=== PATIENT | male | born 1980 | race Caucasian/White ===

== ENCOUNTER 2016-08-26 12:32 | Emergency (ER) | payer MEDICAID ==
[~2016-08-26] VITALS: Ht 175.3 cm; Wt 79.4 kg
[2016-08-26 13:16] LABS: Hematocrit 41.3 % (41.0-53.0); Hemoglobin 13.9 g/dL (13.5-17.5); Mean Corpuscular Hemoglobin 30.3 pg (28.0-32.0); Mean Corpuscular Hgb Conc. 33.6 g/dL (32.0-36.0); Mean Corpuscular Volume 90.1 fL (80.0-100.0); Platelet Count (auto) 261 10^3/uL (140-450); Red Cell Distribution Width 13.1 % (11.6-16.0); SUSPECT VIEW TRANSMISSION; White Blood Cell 23.5 10^3/uL (4.4-10.8)
[2016-08-26 13:31] LABS: Metamyelocytes % 0; Myelocytes % 0; Promyelocytes % 0; Reactive Lymphocytes 0
[2016-08-26 13:37] LABS: Albumin 3.3 g/dL (3.4-5.0); BUN/Creatinine Ratio 13.1; Bilirubin, Total 1.5 mg/dL (0.2-1.0); Potassium 3.7 mmol/L (3.5-5.1)
[2016-08-26 14:02] LABS: Anisocytosis Slight; Ovalocytes FEW; Platelet Estimate Markedly Decreased
[2016-08-26] MEDS ORDERED: SODIUM CHLORIDE 0.9% 500 ML IV ONE (16:42)
[2016-08-26] MEDS ORDERED: CLINDAMYCIN 900MG IV 50 ML IV ONE (17:30)
[2016-08-26 17:45] LABS: Lactic Acid w/Reflex 2.9 mmol/L (0.4-2.0)
[2016-08-26 17:46] LABS: REFLEX LACTIC ACID YES OR NO YES
[2016-08-26] MEDS ORDERED: ONDANSETRON HCL 4 MG/2 ML VIAL IV ONE (21:00)
[2016-08-26] MEDS ORDERED: HYDROmorphone HCL 2 MG/ML VL IV ONE (21:00)
[2016-08-26] MEDS ORDERED: cefTRIAXone 1GM/50ML D5W 50 ML IV ONE (22:30)
[2016-08-26] MEDS ORDERED: VANCOMYCIN 1GM/250ML D5W 250 ML IV ONE (22:30)
[2016-08-27] MEDS ORDERED: HYDROcodone-ACET 10/325MG TAB PO ONE (01:30)
[2016-08-27 08:15] VITALS: BP 108/56
[2016-08-27] MEDS ORDERED: ACETAMINOPHEN 325 MG TAB PO ONE (08:30)
== END 2016-08-27 08:30 | disposition short-term general hospital (02) ==
LOC: ER 12:34
DX: L03.113 Cellulitis of right upper limb (principal); F17.210 Nicotine dependence, cigarettes, uncomplicated; F12.10 Cannabis abuse, uncomplicated; F15.10 Other stimulant abuse, uncomplicated; F11.10 Opioid abuse, uncomplicated
CPT/HCPCS: 36415; 73130; 73200; 80053; 83605; 85007; 85027; 87040; 94761; 96361; 96365; 96366; 96367; 96368; 96375; 99285; J0696; J1170; J2405; J3370; J3490; J7040

== ENCOUNTER 2017-03-03 19:33 | Emergency (ER) | payer MEDICAID ==
[~2017-03-03] VITALS: Ht 177.8 cm; Wt 86.2 kg
[2017-03-03] MEDS ORDERED: cefTRIAXone SOD 1,000 MG VL IM ONE (23:15)
[2017-03-03 23:16] VITALS: BP 147/79
== END 2017-03-03 23:21 | disposition home or self-care (01) ==
LOC: ER 19:44
DX: R21 Rash and other nonspecific skin eruption (principal); F17.210 Nicotine dependence, cigarettes, uncomplicated
CPT/HCPCS: 96372; 99283; J0696

== ENCOUNTER 2017-03-30 20:40 | Emergency (ER) | payer MEDICAID ==
[~2017-03-30] VITALS: Ht 177.8 cm; Wt 86.2 kg
[2017-03-31] MEDS ORDERED: LIDOCAINE 1% HCL (LOCAL ANESTH.) INJ 20ML MDV ONE
[2017-03-31] MEDS ORDERED: cefTRIAXone SOD 1,000 MG VL IM ONE
[2017-03-31] MEDS ORDERED: cefTRIAXone SOD 1,000 MG VL ONE
[2017-03-31 00:23] VITALS: BP 141/96
== END 2017-03-31 00:33 | disposition home or self-care (01) ==
LOC: ER 20:40
DX: L25.9 Unspecified contact dermatitis, unspecified cause (principal); I10 Essential (primary) hypertension; F17.210 Nicotine dependence, cigarettes, uncomplicated; B86 Scabies; Z20.7 Contact with and (suspected) exposure to pediculosis, acariasis and other infestations; Z76.0 Encounter for issue of repeat prescription
CPT/HCPCS: 96372; 99283; J0696; J2001

== ENCOUNTER 2017-05-17 14:39 | Emergency (ER) | payer MEDICAID ==
[~2017-05-17] VITALS: Ht 175.3 cm; Wt 90.7 kg
[2017-05-17] MEDS ORDERED: IPRATROPIUM BROM 0.5 MG/2.5ML INH SOL NEB ONE (18:15)
[2017-05-17] MEDS ORDERED: ALBUTEROL SULF 2.5 MG/0.5ML(0.5%) NEB SOLN NEB ONE (18:15)
[2017-05-17 18:30] VITALS: BP 111/79
== END 2017-05-17 18:47 | disposition home or self-care (01) ==
LOC: ER 14:47
DX: J45.909 Unspecified asthma, uncomplicated (principal); F17.210 Nicotine dependence, cigarettes, uncomplicated; Z76.0 Encounter for issue of repeat prescription
CPT/HCPCS: 93005; 94640

== ENCOUNTER 2017-07-21 20:20 | Inpatient (IN) | payer MEDICAID ==
[~2017-07-21] VITALS: Ht 177.8 cm; Wt 95.5 kg
[2017-07-21 22:04] LABS: Albumin 3.4 g/dL (3.4-5.0); BUN/Creatinine Ratio 11.4; Calcium 8.1 mg/dL (8.5-10.1); Potassium 3.5 mmol/L (3.5-5.1)
[2017-07-21 22:05] LABS: Mean Corpuscular Hemoglobin 29.7 pg (28.0-32.0); Mean Corpuscular Hgb Conc. 34.1 g/dL (32.0-36.0); Mean Corpuscular Volume 87.1 fL (80.0-100.0); Platelet Count (auto) 194 10^3/uL (140-450); Red Blood Cells 4.71 10^6/uL (4.5-5.90); Red Cell Distribution Width 13.2 % (11.8-14.3); White Blood Cell 21.7 10^3/uL (4.4-10.8)
[2017-07-21 22:06] LABS: Bilirubin, Total 2.4 mg/dL (0.2-1.0); Total Protein 7.8 g/dL (6.4-8.2)
[2017-07-21 22:12] LABS: Band Neutrophils % (manual) 0; Basophils % (manual) 0 (0.0-2.0); Eosinophils % (manual) 0 (0-7); Metamyelocytes % 0
[2017-07-21 22:13] LABS: Blast Cells 0; Myelocytes % 0; Promyelocytes % 0; Reactive Lymphocytes 0
[2017-07-21 22:14] LABS: INR 1.15 (0.9-1.15); Partial Thromboplastin Time 35.5 sec (22.64-33.71); Prothrombin Time 12.6 sec (9.37-12.3)
[2017-07-21 22:59] LABS: Lymphocytes % (manual) 5 (10.0-50.0); Monocytes % (manual) 4 (0-12)
[2017-07-22] MEDS ORDERED: SODIUM CHLORIDE 0.9% 1,000 ML IV ONE
[2017-07-22] MEDS ORDERED: VANCOMYCIN 1GM/250ML 250 ML IV ONE
[2017-07-22] MEDS ORDERED: cefTRIAXone 1GM/10ml IVPUSH 10 ML IV ONE
[2017-07-22] MEDS ORDERED: ONDANSETRON HCL 4 MG/2 ML VIAL IV ONE ×2 (04:30)
[2017-07-22] MEDS ORDERED: MORPHINE SULFATE 4 MG/ML SYR/VIAL IV ONE ×2 (04:30)
[2017-07-22] MEDS ORDERED: ACETAMINOPHEN 325 MG TAB PO PRN (04:45)
[2017-07-22] MEDS ORDERED: ONDANSETRON HCL 4 MG/2 ML VIAL IV PRN (04:45)
[2017-07-22] MEDS ORDERED: VANCOMYCIN PER PHARMACY 0 MG IV SCH (04:45)
[2017-07-22] MEDS ORDERED: SODIUM CHLORIDE 0.9% 500 ML IV ONE (04:45)
[2017-07-22] MEDS ORDERED: TEMAZEPAM 15 MG CAP PO PRN (04:45)
[2017-07-22] MEDS: SODIUM CHLORIDE 0.9% 1,000 ML IV SCH ×2 (04:56→18:16)
[2017-07-22 05:45] VITALS: BP 145/80
[2017-07-22 07:29] LABS: Albumin 2.9 g/dL (3.4-5.0); BUN/Creatinine Ratio 11.5; Calcium 7.8 mg/dL (8.5-10.1); Potassium 3.6 mmol/L (3.5-5.1)
[2017-07-22 07:32] LABS: Total Protein 6.9 g/dL (6.4-8.2)
[2017-07-22 07:34] LABS: Urine Bacteria FEW /hpf (None Seen); Urine Blood 2+ /uL (Negative); Urine Mucus FEW (None Seen); Urine Specific Gravity 1.021 (1.001-1.035); Urine WBC 1 /hpf (0 - 3)
[2017-07-22 07:45] LABS: Alcohol, Urine < 3.0 mg/dL (0-5); Amphetamine Screen, Urine NEGATIVE (NEGATIVE); Barbiturate Scree,Urine NEGATIVE (NEGATIVE); Benzodiazephine Screen, Urine NEGATIVE (NEGATIVE); Cannabinoid Screen, Urine NEGATIVE (NEGATIVE); Cocaine Screen, Urine NEGATIVE (NEGATIVE); Opiate Scree,Urine POSITIVE (NEGATIVE); Phencyclidine Screen, Urine NEGATIVE (NEGATIVE)
[2017-07-22 08:00] VITALS: BP 128/70
[2017-07-22 08:30] VITALS: BP 161/86
[2017-07-22] MEDS: FAMOTIDINE 20 MG TAB PO SCH ×2 (09:08→21:08)
[2017-07-22] MEDS: HYDROcodone-ACET 5/325MG TAB PO PRN (09:09)
[2017-07-22] MEDS ORDERED: ENOXAPARIN SOD 40 MG/0.4 ML SYRINGE SC SCH (10:00)
[2017-07-22] MEDS ORDERED: LORazepam 0.5 MG TAB PO PRN (11:30)
[2017-07-22] MEDS: MORPHINE SULFATE 4 MG/ML SYR/VIAL IV PRN ×3 (12:13→20:53)
[2017-07-22] MEDS: VANCOMYCIN 1,250 MG in D5W 5% 250 ML IV SCH ×2 (12:14→22:36)
[2017-07-22 13:00] VITALS: BP 136/67
[2017-07-22 16:35] VITALS: BP 154/78
[2017-07-22 22:00] VITALS: BP 148/98
[2017-07-22] MEDS ORDERED: cefTRIAXone 1GM/10ml IVPUSH 10 ML IV SCH (22:00)
[2017-07-23] MEDS: MORPHINE SULFATE 4 MG/ML SYR/VIAL IV PRN ×5 (01:11→16:34)
[2017-07-23 05:00] VITALS: BP 153/88
[2017-07-23 05:58] LABS: Basophils # (auto) 0 uL; Basophils % (auto) 0.2 % (0.0-2.0); Eosinophils # (auto) 0 uL; Eosinophils % (auto) 0.1 % (0.0-7.0); Hemoglobin 12.7 g/dL (13.5-17.5); Lymphocytes # (auto) 1.2 uL; Mean Corpuscular Hemoglobin 29.8 pg (28.0-32.0); Mean Corpuscular Hgb Conc. 34.4 g/dL (32.0-36.0); Mean Corpuscular Volume 86.5 fL (80.0-100.0); Monocytes # (auto) 1.4 uL; Monocytes % (auto) 9.1 % (0.0-12.0); Neutrophils # (auto) 12.5 uL; Neutrophils % (auto) 82.6 % (37.0-80.0); Platelet Count (auto) 146 10^3/uL (140-450); Red Blood Cells 4.27 10^6/uL (4.5-5.90); Red Cell Distribution Width 13.1 % (11.8-14.3); White Blood Cell 15.1 10^3/uL (4.4-10.8)
[2017-07-23 06:23] LABS: BUN/Creatinine Ratio 14.7; Potassium 3.4 mmol/L (3.5-5.1)
[2017-07-23] MEDS: SODIUM CHLORIDE 0.9% 1,000 ML IV SCH (08:04)
[2017-07-23 09:00] VITALS: BP 147/87
[2017-07-23] MEDS: FAMOTIDINE 20 MG TAB PO SCH ×2 (09:39→21:09)
[2017-07-23] MEDS ORDERED: LORazepam 0.5 MG TAB PO PRN (10:05)
[2017-07-23] MEDS ORDERED: POTASSIUM CHL 10 Meq TABLET PO ONE (10:15)
[2017-07-23] MEDS: VANCOMYCIN 1,250 MG in D5W 5% 250 ML IV SCH ×2 (11:11→23:10)
[2017-07-23 13:00] VITALS: BP 150/96
[2017-07-23 17:00] VITALS: BP 148/79
[2017-07-23] MEDS: HYDROcodone-ACET 5/325MG TAB PO PRN (21:09)
[2017-07-24 04:30] VITALS: BP 148/80
[2017-07-24 08:00] VITALS: BP 145/71
[2017-07-24 08:40] LABS: Basophils # (auto) 0.1 uL; Basophils % (auto) 0.4 % (0.0-2.0); Eosinophils # (auto) 0 uL; Eosinophils % (auto) 0.1 % (0.0-7.0); Hemoglobin 13.1 g/dL (13.5-17.5); Lymphocytes % (auto) 7.3 % (10.0-50.0); Mean Corpuscular Hemoglobin 29.9 pg (28.0-32.0); Mean Corpuscular Hgb Conc. 34.5 g/dL (32.0-36.0); Mean Corpuscular Volume 86.8 fL (80.0-100.0); Monocytes # (auto) 0.9 uL; Monocytes % (auto) 6.5 % (0.0-12.0); Neutrophils # (auto) 12.3 uL; Neutrophils % (auto) 85.7 % (37.0-80.0); Nucleated Red Blood Cells % 0.4 %; Platelet Count (auto) 198 10^3/uL (140-450); Red Blood Cells 4.38 10^6/uL (4.5-5.90); Red Cell Distribution Width 13.1 % (11.8-14.3); White Blood Cell 14.3 10^3/uL (4.4-10.8)
[2017-07-24 08:48] VITALS: BP 145/71
[2017-07-24] MEDS: FAMOTIDINE 20 MG TAB PO SCH (11:13)
[2017-07-24] MEDS: VANCOMYCIN 1,250 MG in D5W 5% 250 ML IV SCH (11:14)
[2017-07-24] MEDS ORDERED: ASPirin-EC 325mg tab PO ONE (11:15)
[2017-07-24 12:41] VITALS: BP 148/74
[2017-07-24] MEDS ORDERED: VANCOMYCIN 1,250 MG in D5W 5% 250 ML IV SCH (19:00)
[2017-07-25 09:50] LABS: Hepatitis B Surface Antigen Negative (Negative)
[2017-07-25 10:16] LABS: Hepatitis B Core IgM Negative
[2017-07-25 10:18] LABS: Hepatitis A Ab IgM Negative
[2017-07-25 10:22] LABS: Hepatitis C Antibody Positive (Negative)
== END 2017-07-24 13:18 | disposition left against medical advice (07) | DRG 720 ==
LOC: ER 20:20 → OVERFLOW 20:21 → CENTRAL 07-22 05:45
PROVIDERS: ADMIT Nurse Practitioner; ATTEND Internal Medicine
DX: A41.02 Sepsis due to Methicillin resistant Staphylococcus aureus (principal); E87.1 Hypo-osmolality and hyponatremia; L03.113 Cellulitis of right upper limb; F11.10 Opioid abuse, uncomplicated; F17.210 Nicotine dependence, cigarettes, uncomplicated; J45.909 Unspecified asthma, uncomplicated; F15.10 Other stimulant abuse, uncomplicated; Z53.21 Procedure and treatment not carried out due to patient leaving prior to being seen by health care provider; F12.10 Cannabis abuse, uncomplicated; G47.00 Insomnia, unspecified; R03.0 Elevated blood-pressure reading, without diagnosis of hypertension; Z71.51 Drug abuse counseling and surveillance of drug abuser
CPT/HCPCS: 36415; 73200; 80048; 80053; 80074; 80202; 80307; 81001; 84132; 84443; 85007; 85025; 85027; 85610; 85730; 87040; 87077; 87081; 87186; 93005; 93306; 93930; 93971; 96361; 96365; 96375; 96376; J2405; J7060

== ENCOUNTER 2017-07-25 06:30 | Inpatient (IN) | payer MEDICAID ==
[~2017-07-25] VITALS: Ht 177.8 cm; Wt 94.4 kg
[2017-07-25 08:08] LABS: Basophils # (auto) 0.1 uL; Basophils % (auto) 0.7 % (0.0-2.0); Eosinophils # (auto) 0.1 uL; Eosinophils % (auto) 0.7 % (0.0-7.0); Hemoglobin 12.7 g/dL (13.5-17.5); Lymphocytes # (auto) 2.4 uL; Mean Corpuscular Hemoglobin 29.5 pg (28.0-32.0); Mean Corpuscular Hgb Conc. 33.5 g/dL (32.0-36.0); Mean Corpuscular Volume 88.1 fL (80.0-100.0); Monocytes # (auto) 1.7 uL; Monocytes % (auto) 10.8 % (0.0-12.0); Neutrophils # (auto) 11.5 uL; Neutrophils % (auto) 72.8 % (37.0-80.0); Nucleated Red Blood Cells % 0.2 %; Platelet Count (auto) 254 10^3/uL (140-450); Red Blood Cells 4.32 10^6/uL (4.5-5.90); White Blood Cell 15.8 10^3/uL (4.4-10.8)
[2017-07-25 08:17] LABS: INR 1.09 (0.9-1.15); Partial Thromboplastin Time 29.6 sec (22.64-33.71); Prothrombin Time 11.9 sec (9.37-12.3)
[2017-07-25 08:23] LABS: Albumin 2.6 g/dL (3.4-5.0); Anion Gap 8 (5-15); Blood Urea Nitrogen 22 mg/dL (7-18); Calcium 7.5 mg/dL (8.5-10.1); Carbon Dioxide 25 mmol/L (21-32); Chloride 100 mmol/L (98-107); Glucose 107 mg/dL (74-106); Sodium 133 mmol/L (136-145)
[2017-07-25 08:25] LABS: Alanine Aminotransferase 44 U/L (16-61); Aspartate Aminotransferase 31 U/L (15-37); BUN/Creatinine Ratio 17.3; GFR African American 82 mL/min; GFR Non-African American 67 mL/min
[2017-07-25 08:36] LABS: Alkaline Phosphatase 77 U/L (45-117); Bilirubin, Total 0.6 mg/dL (0.2-1.0); Total Protein 7.2 g/dL (6.4-8.2)
[2017-07-25 08:52] LABS: Urine Bacteria NONE SEEN /hpf (None Seen); Urine Blood TRACE /uL (Negative); Urine Specific Gravity 1.022 (1.001-1.035); Urine WBC 2 /hpf (0 - 3)
[2017-07-25 09:07] LABS: Alcohol, Urine < 3.0 mg/dL (0-5); Amphetamine Screen, Urine POSITIVE (NEGATIVE); Barbiturate Scree,Urine NEGATIVE (NEGATIVE); Benzodiazephine Screen, Urine NEGATIVE (NEGATIVE); Cannabinoid Screen, Urine NEGATIVE (NEGATIVE); Cocaine Screen, Urine NEGATIVE (NEGATIVE); Opiate Scree,Urine POSITIVE (NEGATIVE); Phencyclidine Screen, Urine NEGATIVE (NEGATIVE)
[2017-07-25] MEDS ORDERED: CLINDAMYCIN 900MG IV 50 ML IV ONE (10:30)
[2017-07-25] MEDS ORDERED: PIPERACILLIN-TAZOB 3.375GM 50 ML IV ONE (10:30)
[2017-07-25] MEDS ORDERED: VANCOMYCIN PER PHARMACY 0 MG IV SCH (12:30)
[2017-07-25] MEDS ORDERED: MULTIPLE VITAMIN TAB PO ONE (12:45)
[2017-07-25] MEDS ORDERED: FAMOTIDINE 20 MG TAB PO ONE (12:45)
[2017-07-25] MEDS ORDERED: TEMAZEPAM 15 MG CAP PO PRN (12:45)
[2017-07-25] MEDS ORDERED: ONDANSETRON HCL 4 MG/2 ML VIAL IV PRN (12:45)
[2017-07-25] MEDS ORDERED: ASCORBIC ACID 500 MG TAB PO ONE (12:45)
[2017-07-25] MEDS ORDERED: DOCUSATE SOD 100 MG CAP PO PRN (12:45)
[2017-07-25] MEDS ORDERED: ZINC SULFATE 220 MG CAP PO ONE (12:45)
[2017-07-25] MEDS ORDERED: MORPHINE SULFATE 4 MG/ML SYR/VIAL IV PRN (12:45)
[2017-07-25] MEDS ORDERED: ACETAMINOPHEN 325 MG TAB PO PRN (12:45)
[2017-07-25] MEDS ORDERED: HYDROcodone-ACET 5/325MG TAB PO PRN (12:45)
[2017-07-25] MEDS: VANCOMYCIN 1GM/250ML 250 ML IV SCH (13:57)
[2017-07-25] MEDS: SODIUM CHLOR 0.9% PF (SALINE LOCK) 10ML VIAL IV SCH ×2 (14:20→22:25)
[2017-07-25] MEDS: PIPERACILLIN-TAZOB 3.375GM 50 ML IV SCH ×2 (18:33→23:50)
[2017-07-25] MEDS: ALBUTEROL SULF 2.5 MG/0.5ML(0.5%) NEB SOLN NEB SCH (18:52)
[2017-07-25 20:58] VITALS: BP 134/81
[2017-07-25] MEDS: ASCORBIC ACID 500 MG TAB PO SCH (22:25)
[2017-07-25] MEDS: FAMOTIDINE 20 MG TAB PO SCH (22:25)
[2017-07-26] VITALS (7 sets, daily range): BP systolic 151–169; BP diastolic 82–99
[2017-07-26] MEDS: VANCOMYCIN 1GM/250ML 250 ML IV SCH ×2 (02:51→15:15)
[2017-07-26] MEDS: SODIUM CHLOR 0.9% PF (SALINE LOCK) 10ML VIAL IV SCH ×3 (06:21→21:29)
[2017-07-26] MEDS: PIPERACILLIN-TAZOB 3.375GM 50 ML IV SCH ×3 (06:22→16:58)
[2017-07-26 06:49] LABS: Basophils # (auto) 0.1 uL; Basophils % (auto) 0.8 % (0.0-2.0); Eosinophils # (auto) 0.3 uL; Eosinophils % (auto) 2.5 % (0.0-7.0); Hematocrit 37.4 % (41.0-53.0); Hemoglobin 12.9 g/dL (13.5-17.5); Lymphocytes # (auto) 2.1 uL; Lymphocytes % (auto) 16.1 % (10.0-50.0); Mean Corpuscular Hemoglobin 29.8 pg (28.0-32.0); Mean Corpuscular Hgb Conc. 34.5 g/dL (32.0-36.0); Mean Corpuscular Volume 86.3 fL (80.0-100.0); Monocytes # (auto) 1.4 uL; Monocytes % (auto) 10.5 % (0.0-12.0); Neutrophils % (auto) 70.1 % (37.0-80.0); Nucleated Red Blood Cells % 0.1 %; Platelet Count (auto) 250 10^3/uL (140-450); Red Blood Cells 4.33 10^6/uL (4.5-5.90); Red Cell Distribution Width 13.1 % (11.8-14.3); White Blood Cell 12.9 10^3/uL (4.4-10.8)
[2017-07-26 07:04] LABS: Potassium 3.2 mmol/L (3.5-5.1)
[2017-07-26 07:07] LABS: Albumin 2.5 g/dL (3.4-5.0)
[2017-07-26 07:10] LABS: Bilirubin, Total 0.7 mg/dL (0.2-1.0); Total Protein 6.8 g/dL (6.4-8.2)
[2017-07-26] MEDS: ALBUTEROL SULF 2.5 MG/0.5ML(0.5%) NEB SOLN NEB SCH ×4 (07:31→19:29)
[2017-07-26] MEDS: ZINC SULFATE 220 MG CAP PO SCH (11:09)
[2017-07-26] MEDS: FAMOTIDINE 20 MG TAB PO SCH ×2 (11:09→21:29)
[2017-07-26] MEDS: ASCORBIC ACID 500 MG TAB PO SCH ×2 (11:10→21:29)
[2017-07-26] MEDS: MULTIPLE VITAMIN TAB PO SCH (11:11)
[2017-07-26] MEDS ORDERED: POTASSIUM CHL 20 Meq TABLET PO ONE (16:00)
[2017-07-27] MEDS: ALBUTEROL SULF 2.5 MG/0.5ML(0.5%) NEB SOLN NEB SCH ×2 (00:33→08:34)
[2017-07-27] MEDS: VANCOMYCIN 1GM/250ML 250 ML IV SCH (02:05)
[2017-07-27 05:00] VITALS: BP 140/75
[2017-07-27] MEDS: PIPERACILLIN-TAZOB 3.375GM 50 ML IV SCH ×3 (05:47→12:07)
[2017-07-27] MEDS: SODIUM CHLOR 0.9% PF (SALINE LOCK) 10ML VIAL IV SCH (05:47)
[2017-07-27 05:53] LABS: Basophils # (auto) 0.1 uL; Basophils % (auto) 0.9 % (0.0-2.0); Eosinophils # (auto) 0.9 uL; Eosinophils % (auto) 7.4 % (0.0-7.0); Hematocrit 36.3 % (41.0-53.0); Hemoglobin 12.8 g/dL (13.5-17.5); Lymphocytes # (auto) 2.2 uL; Lymphocytes % (auto) 18.7 % (10.0-50.0); Mean Corpuscular Hemoglobin 30.3 pg (28.0-32.0); Mean Corpuscular Hgb Conc. 35.3 g/dL (32.0-36.0); Mean Corpuscular Volume 85.8 fL (80.0-100.0); Monocytes # (auto) 1.2 uL; Monocytes % (auto) 9.7 % (0.0-12.0); Neutrophils # (auto) 7.6 uL; Neutrophils % (auto) 63.3 % (37.0-80.0); Nucleated Red Blood Cells % 0.1 %; Platelet Count (auto) 296 10^3/uL (140-450); Red Blood Cells 4.23 10^6/uL (4.5-5.90); Red Cell Distribution Width 12.9 % (11.8-14.3)
[2017-07-27 06:06] LABS: BUN/Creatinine Ratio 9.8; Calcium 7.9 mg/dL (8.5-10.1); Magnesium 2.3 mg/dL (1.6-2.6); Potassium 3.2 mmol/L (3.5-5.1)
[2017-07-27 07:45] VITALS: BP 152/96
[2017-07-27 08:30] VITALS: BP 152/89
[2017-07-27] MEDS: MULTIPLE VITAMIN TAB PO SCH (09:12)
[2017-07-27] MEDS: ZINC SULFATE 220 MG CAP PO SCH (09:12)
[2017-07-27] MEDS: FAMOTIDINE 20 MG TAB PO SCH (09:13)
[2017-07-27] MEDS: ASCORBIC ACID 500 MG TAB PO SCH (09:13)
[2017-07-27 11:43] VITALS: BP 148/92
[2017-07-27] MEDS ORDERED: amLODIPine BESYLATE 5 MG TAB PO ONE (13:15)
[2017-07-27] MEDS ORDERED: POTASSIUM CHL 20 Meq TABLET PO ONE (13:15)
[2017-07-28] MEDS ORDERED: amLODIPine BESYLATE 5 MG TAB PO SCH (10:00)
== END 2017-07-27 13:45 | disposition left against medical advice (07) | DRG 720 ==
LOC: ER 06:32 → OVERFLOW 06:33 → WEST WING 19:56
PROVIDERS: ADMIT Internal Medicine; ATTEND Internal Medicine
DX: A41.9 Sepsis, unspecified organism (principal); I76 Septic arterial embolism; J18.9 Pneumonia, unspecified organism; E44.1 Mild protein-calorie malnutrition; I12.9 Hypertensive chronic kidney disease with stage 1 through stage 4 chronic kidney disease, or unspecified chronic kidney disease; L03.113 Cellulitis of right upper limb; E87.1 Hypo-osmolality and hyponatremia; E83.51 Hypocalcemia; E87.6 Hypokalemia; D63.8 Anemia in other chronic diseases classified elsewhere; F11.10 Opioid abuse, uncomplicated; F15.90 Other stimulant use, unspecified, uncomplicated; F17.210 Nicotine dependence, cigarettes, uncomplicated; Z53.21 Procedure and treatment not carried out due to patient leaving prior to being seen by health care provider; J45.909 Unspecified asthma, uncomplicated; N18.2 Chronic kidney disease, stage 2 (mild); Z86.14 Personal history of Methicillin resistant Staphylococcus aureus infection; E88.09 Other disorders of plasma-protein metabolism, not elsewhere classified
CPT/HCPCS: 36415; 71046; 71250; 73200; 80048; 80053; 80307; 81001; 83605; 83735; 83880; 84484; 85025; 85610; 85730; 87040; 87070; 87081; 87205; 93005; 93971; 94640; 96365; 96368; J2543; J3490

== ENCOUNTER 2017-08-06 20:36 | Emergency (ER) | payer MEDICAID ==
[~2017-08-06] VITALS: Ht 177.8 cm; Wt 90.7 kg
[2017-08-07 03:40] LABS: Basophils # (auto) 0.1 uL; Basophils % (auto) 1.2 % (0.0-2.0); Eosinophils # (auto) 0.3 uL; Eosinophils % (auto) 3.4 % (0.0-7.0); Hematocrit 36.3 % (41.0-53.0); Hemoglobin 12.3 g/dL (13.5-17.5); Lymphocytes % (auto) 19.7 % (10.0-50.0); Mean Corpuscular Hgb Conc. 33.9 g/dL (32.0-36.0); Mean Corpuscular Volume 88.4 fL (80.0-100.0); Monocytes # (auto) 0.5 uL; Monocytes % (auto) 4.7 % (0.0-12.0); Neutrophils # (auto) 7.1 uL; Nucleated Red Blood Cells % 0.3 %; Platelet Count (auto) 316 10^3/uL (140-450); Red Cell Distribution Width 13.5 % (11.8-14.3); White Blood Cell 10.1 10^3/uL (4.4-10.8)
[2017-08-07 03:46] LABS: Alanine Aminotransferase 56 U/L (16-61); Albumin 3.3 g/dL (3.4-5.0); Anion Gap 10 (5-15); Aspartate Aminotransferase 50 U/L (15-37); BUN/Creatinine Ratio 14.9; Blood Alcohol < 3.0 mg/dL (0-5); Blood Urea Nitrogen 20 mg/dL (7-18); Calcium 8.1 mg/dL (8.5-10.1); Carbon Dioxide 20 mmol/L (21-32); Chloride 108 mmol/L (98-107); GFR African American 77 mL/min; GFR Non-African American 63 mL/min; Glucose 107 mg/dL (74-106); Magnesium 2.1 mg/dL (1.6-2.6); Potassium 4.1 mmol/L (3.5-5.1); Sodium 138 mmol/L (136-145)
[2017-08-07 03:49] LABS: Alkaline Phosphatase 72 U/L (45-117); Bilirubin, Total 0.3 mg/dL (0.2-1.0); Total Protein 7.7 g/dL (6.4-8.2)
[2017-08-07 07:30] VITALS: BP 134/90
== END 2017-08-07 07:52 | disposition home or self-care (01) ==
LOC: ER 20:36
DX: J40 Bronchitis, not specified as acute or chronic (principal); F17.210 Nicotine dependence, cigarettes, uncomplicated; R06.02 Shortness of breath
CPT/HCPCS: 36415; 71045; 80053; 80320; 83735; 83880; 84484; 85025

== ENCOUNTER 2017-08-15 23:29 | Emergency (ER) | payer MEDICAID ==
[~2017-08-15] VITALS: Ht 177.8 cm; Wt 90.7 kg
[2017-08-16 00:17] LABS: Alcohol, Urine < 3.0 mg/dL (0-5); Amphetamine Screen, Urine NEGATIVE (NEGATIVE); Barbiturate Scree,Urine NEGATIVE (NEGATIVE); Benzodiazephine Screen, Urine NEGATIVE (NEGATIVE); Cannabinoid Screen, Urine NEGATIVE (NEGATIVE); Cocaine Screen, Urine NEGATIVE (NEGATIVE); Opiate Scree,Urine POSITIVE (NEGATIVE); Phencyclidine Screen, Urine NEGATIVE (NEGATIVE)
[2017-08-16 00:49] LABS: Basophils # (auto) 0.1 uL; Basophils % (auto) 1.2 % (0.0-2.0); Eosinophils # (auto) 0.8 uL; Eosinophils % (auto) 10.6 % (0.0-7.0); Hematocrit 40.2 % (41.0-53.0); Hemoglobin 13.6 g/dL (13.5-17.5); Lymphocytes # (auto) 2.7 uL; Lymphocytes % (auto) 37.7 % (10.0-50.0); Mean Corpuscular Hemoglobin 29.9 pg (28.0-32.0); Mean Corpuscular Hgb Conc. 33.8 g/dL (32.0-36.0); Mean Corpuscular Volume 88.4 fL (80.0-100.0); Monocytes # (auto) 0.5 uL; Monocytes % (auto) 6.3 % (0.0-12.0); Neutrophils # (auto) 3.2 uL; Neutrophils % (auto) 44.2 % (37.0-80.0); Nucleated Red Blood Cells % 0.1 %; Platelet Count (auto) 219 10^3/uL (140-450); Red Blood Cells 4.55 10^6/uL (4.5-5.90); Red Cell Distribution Width 13.8 % (11.8-14.3); White Blood Cell 7.2 10^3/uL (4.4-10.8)
[2017-08-16 01:10] LABS: Alanine Aminotransferase 64 U/L (16-61); Albumin 3.5 g/dL (3.4-5.0); Alkaline Phosphatase 71 U/L (45-117); Anion Gap 7 (5-15); Aspartate Aminotransferase 52 U/L (15-37); BUN/Creatinine Ratio 15.4; Bilirubin, Total 0.4 mg/dL (0.2-1.0); Blood Urea Nitrogen 20 mg/dL (7-18); Calcium 8.4 mg/dL (8.5-10.1); Carbon Dioxide 23 mmol/L (21-32); Chloride 110 mmol/L (98-107); GFR African American 79 mL/min; GFR Non-African American 66 mL/min; Glucose 131 mg/dL (74-106); Sodium 140 mmol/L (136-145)
[2017-08-16 05:17] VITALS: BP 145/83
== END 2017-08-16 06:35 | disposition home or self-care (01) ==
LOC: ER 23:29
DX: R07.9 Chest pain, unspecified (principal); J45.909 Unspecified asthma, uncomplicated; F17.210 Nicotine dependence, cigarettes, uncomplicated
CPT/HCPCS: 36415; 71046; 80053; 80307; 84484; 85025; 93005

== ENCOUNTER 2017-09-10 17:36 | Emergency (ER) | payer MEDICAID ==
[~2017-09-10] VITALS: Ht 177.8 cm; Wt 86.2 kg
[2017-09-10 17:45] VITALS: BP 116/83
[2017-09-10 18:26] LABS: Basophils # (auto) 0.1 uL; Basophils % (auto) 1.4 % (0.0-2.0); Eosinophils # (auto) 0.9 uL; Eosinophils % (auto) 11.6 % (0.0-7.0); Hematocrit 38.6 % (41.0-53.0); Lymphocytes # (auto) 2.5 uL; Lymphocytes % (auto) 31.6 % (10.0-50.0); Mean Corpuscular Hemoglobin 29.8 pg (28.0-32.0); Mean Corpuscular Hgb Conc. 33.8 g/dL (32.0-36.0); Mean Corpuscular Volume 88.4 fL (80.0-100.0); Monocytes # (auto) 0.6 uL; Monocytes % (auto) 8.2 % (0.0-12.0); Neutrophils # (auto) 3.8 uL; Neutrophils % (auto) 47.2 % (37.0-80.0); Nucleated Red Blood Cells % 0.1 %; Platelet Count (auto) 217 10^3/uL (140-450); Red Blood Cells 4.36 10^6/uL (4.5-5.90); Red Cell Distribution Width 13.3 % (11.8-14.3); White Blood Cell 7.9 10^3/uL (4.4-10.8)
[2017-09-10 18:45] LABS: Albumin 2.9 g/dL (3.4-5.0); Potassium 4.3 mmol/L (3.5-5.1)
[2017-09-10 18:48] LABS: BUN/Creatinine Ratio 13.4; Bilirubin, Total 0.4 mg/dL (0.2-1.0); Total Protein 7.4 g/dL (6.4-8.2)
[2017-09-10] MEDS ORDERED: LIDOCAINE W/ EPINEPHRINE 2% INJ 20ML VIAL ID ONE (23:15)
== END 2017-09-10 22:51 | disposition home or self-care (01) ==
LOC: ER 17:45
DX: L03.113 Cellulitis of right upper limb (principal); F11.10 Opioid abuse, uncomplicated; F17.210 Nicotine dependence, cigarettes, uncomplicated; J45.909 Unspecified asthma, uncomplicated; F15.10 Other stimulant abuse, uncomplicated
CPT/HCPCS: 36415; 71046; 73130; 73630; 80053; 84484; 85025; 93005

== ENCOUNTER 2017-09-12 21:38 | Emergency (ER) | payer MEDICAID ==
[~2017-09-12] VITALS: Ht 177.8 cm; Wt 90.7 kg
[2017-09-12 22:28] VITALS: BP 164/92
[2017-09-13] MEDS ORDERED: cefTRIAXone SOD 1,000 MG VL IM ONE (00:45)
== END 2017-09-13 01:15 | disposition home or self-care (01) ==
LOC: ER 21:38
DX: L03.113 Cellulitis of right upper limb (principal); J45.909 Unspecified asthma, uncomplicated; F17.210 Nicotine dependence, cigarettes, uncomplicated; F12.10 Cannabis abuse, uncomplicated; F15.10 Other stimulant abuse, uncomplicated; F14.10 Cocaine abuse, uncomplicated
CPT/HCPCS: 99283; J0696

== ENCOUNTER 2017-09-13 17:57 | Emergency (ER) | payer MEDICAID ==
[~2017-09-13] VITALS: Ht 177.8 cm; Wt 90.7 kg
[2017-09-13 18:57] LABS: Basophils # (auto) 0.1 uL; Basophils % (auto) 0.7 % (0.0-2.0); Eosinophils # (auto) 0.6 uL; Eosinophils % (auto) 5.9 % (0.0-7.0); Hematocrit 38.9 % (41.0-53.0); Hemoglobin 13.3 g/dL (13.5-17.5); Lymphocytes # (auto) 2.7 uL; Lymphocytes % (auto) 28.4 % (10.0-50.0); Mean Corpuscular Hemoglobin 30.2 pg (28.0-32.0); Mean Corpuscular Hgb Conc. 34.2 g/dL (32.0-36.0); Mean Corpuscular Volume 88.2 fL (80.0-100.0); Monocytes # (auto) 0.5 uL; Monocytes % (auto) 5.4 % (0.0-12.0); Neutrophils # (auto) 5.7 uL; Neutrophils % (auto) 59.6 % (37.0-80.0); Nucleated Red Blood Cells % 0.1 %; Platelet Count (auto) 241 10^3/uL (140-450); Red Blood Cells 4.41 10^6/uL (4.5-5.90); Red Cell Distribution Width 13.1 % (11.8-14.3); White Blood Cell 9.7 10^3/uL (4.4-10.8)
[2017-09-13 19:10] LABS: Alanine Aminotransferase 62 U/L (16-61); Albumin 3.4 g/dL (3.4-5.0); Anion Gap 10 (5-15); Aspartate Aminotransferase 48 U/L (15-37); BUN/Creatinine Ratio 12.3; Blood Urea Nitrogen 14 mg/dL (7-18); Calcium 8.6 mg/dL (8.5-10.1); Carbon Dioxide 23 mmol/L (21-32); Chloride 111 mmol/L (98-107); GFR African American 92 mL/min; GFR Non-African American 76 mL/min; Glucose 123 mg/dL (74-106); Magnesium 2.1 mg/dL (1.6-2.6); Potassium 3.6 mmol/L (3.5-5.1); Sodium 144 mmol/L (136-145)
[2017-09-13 19:14] LABS: Alkaline Phosphatase 72 U/L (45-117); Bilirubin, Total 0.3 mg/dL (0.2-1.0); Total Protein 7.6 g/dL (6.4-8.2)
[2017-09-13 19:48] VITALS: BP 137/95
== END 2017-09-13 19:24 | disposition home or self-care (01) ==
LOC: ER 17:59
DX: F11.10 Opioid abuse, uncomplicated (principal); F17.210 Nicotine dependence, cigarettes, uncomplicated; M79.642 Pain in left hand; J45.909 Unspecified asthma, uncomplicated
CPT/HCPCS: 36415; 71046; 80053; 83735; 84484; 85025; 93005

== ENCOUNTER 2017-09-19 13:01 | Emergency (ER) | payer MEDICAID ==
[~2017-09-19] VITALS: Ht 177.8 cm; Wt 93.0 kg
[2017-09-19 13:24] VITALS: BP 158/102
== END 2017-09-20 04:33 | disposition left against medical advice (07) ==
LOC: ER 13:01
DX: M79.89 Other specified soft tissue disorders (principal); Z53.21 Procedure and treatment not carried out due to patient leaving prior to being seen by health care provider

== ENCOUNTER 2017-09-20 07:44 | Emergency (ER) | payer MEDICAID ==
[~2017-09-20] VITALS: Ht 177.8 cm; Wt 93.0 kg
[2017-09-20 08:09] VITALS: BP 137/89
[2017-09-20] MEDS ORDERED: cefTRIAXone SOD 1,000 MG VL IM ONE (09:00)
[2017-09-20] MEDS ORDERED: CLINDAMYCIN 600 MG/4 ML VL IM ONE (09:00)
== END 2017-09-20 10:43 | disposition home or self-care (01) ==
LOC: ER 07:44
DX: L03.113 Cellulitis of right upper limb (principal); J45.909 Unspecified asthma, uncomplicated; F17.210 Nicotine dependence, cigarettes, uncomplicated; Z53.21 Procedure and treatment not carried out due to patient leaving prior to being seen by health care provider; R53.1 Weakness
CPT/HCPCS: 73090; 73130; 96372; 99284; J0696

== ENCOUNTER → 2017-10-29 | Emergency (ER) | payer MEDICAID ==
[2017-10-29 21:29] VITALS: BP 141/97
== END | disposition left against medical advice (07) ==
LOC: ER 20:46
DX: M79.89 Other specified soft tissue disorders (principal); Z53.21 Procedure and treatment not carried out due to patient leaving prior to being seen by health care provider

== ENCOUNTER 2017-11-01 09:50 | Emergency (ER) | payer MEDICAID ==
[~2017-11-01] VITALS: Ht 177.8 cm; Wt 93.0 kg
[2017-11-01 10:16] VITALS: BP 139/75
[2017-11-01] MEDS ORDERED: cefTRIAXone SOD 1,000 MG VL IM ONE (10:45)
== END 2017-11-01 10:54 | disposition home or self-care (01) ==
LOC: ER 09:55
DX: L03.114 Cellulitis of left upper limb (principal); F17.210 Nicotine dependence, cigarettes, uncomplicated
CPT/HCPCS: 73130

== ENCOUNTER 2017-11-01 17:54 | Inpatient (IN) | payer MEDICAID ==
[~2017-11-01] VITALS: Ht 177.8 cm; Wt 96.4 kg
[2017-11-01] MEDS ORDERED: SODIUM CHLORIDE 0.9% 1,000 ML IV ONE ×2 (18:13)
[2017-11-01] MEDS ORDERED: CLINDAMYCIN 900MG IV 50 ML IV ONE (18:15)
[2017-11-01] MEDS ORDERED: PIPERACILLIN-TAZOB 3.375GM 100 ML IV ONE (18:15)
[2017-11-01 19:06] LABS: Basophils # (auto) 0.1 uL; Basophils % (auto) 0.8 % (0.0-2.0); Eosinophils # (auto) 0.8 uL; Hematocrit 43.5 % (41.0-53.0); Hemoglobin 14.7 g/dL (13.5-17.5); Lymphocytes # (auto) 2.9 uL; Lymphocytes % (auto) 33.3 % (10.0-50.0); Mean Corpuscular Hemoglobin 29.9 pg (28.0-32.0); Mean Corpuscular Hgb Conc. 33.7 g/dL (32.0-36.0); Mean Corpuscular Volume 88.8 fL (80.0-100.0); Monocytes # (auto) 0.5 uL; Monocytes % (auto) 5.9 % (0.0-12.0); Neutrophils # (auto) 4.4 uL; Nucleated Red Blood Cells % 0.1 %; Platelet Count (auto) 239 10^3/uL (140-450); Red Cell Distribution Width 13.4 % (11.8-14.3); White Blood Cell 8.7 10^3/uL (4.4-10.8)
[2017-11-01 19:18] LABS: Partial Thromboplastin Time 31.3 sec (23.78-33.04); Prothrombin Time 10.7 sec (9.27-12.13)
[2017-11-01 19:23] LABS: Chloride 108 mmol/L (98-107); Potassium 3.8 mmol/L (3.5-5.1); Sodium 142 mmol/L (136-145)
[2017-11-01 19:23] LABS: Urine Bacteria NONE SEEN /hpf (None Seen); Urine Blood Negative /uL (Negative); Urine Mucus FEW (None Seen); Urine WBC 1 /hpf (0 - 3)
[2017-11-01 19:26] LABS: Alanine Aminotransferase 67 U/L (16-61); Albumin 3.5 g/dL (3.4-5.0); Anion Gap 10 (5-15); Aspartate Aminotransferase 45 U/L (15-37); BUN/Creatinine Ratio 11.2; Blood Urea Nitrogen 13 mg/dL (7-18); Calcium 8.1 mg/dL (8.5-10.1); Carbon Dioxide 24 mmol/L (21-32); GFR African American 91 mL/min; GFR Non-African American 75 mL/min; Glucose 100 mg/dL (74-106)
[2017-11-01 19:29] LABS: Alkaline Phosphatase 69 U/L (45-117); Bilirubin, Total 0.4 mg/dL (0.2-1.0); Total Protein 8.3 g/dL (6.4-8.2)
[2017-11-01] MEDS ORDERED: ACETAMINOPHEN 325 MG TAB PO PRN (21:15)
[2017-11-01] MEDS ORDERED: HYDROcodone-ACET 5/325MG TAB PO PRN (21:15)
[2017-11-01] MEDS ORDERED: ONDANSETRON HCL 4 MG/2 ML VIAL IV PRN (21:15)
[2017-11-01] MEDS ORDERED: TEMAZEPAM 15 MG CAP PO PRN (21:15)
[2017-11-01 22:19] VITALS: BP 146/80
[2017-11-01] MEDS: FAMOTIDINE 20 MG TAB PO SCH (22:51)
[2017-11-01] MEDS: CLINDAMYCIN 600MG IV 50 ML IV SCH (22:52)
[2017-11-01] MEDS: cefTRIAXone 1GM/10ml IVPUSH 10 ML IV SCH (22:52)
[2017-11-02] MEDS: CLINDAMYCIN 600MG IV 50 ML IV SCH (05:13)
[2017-11-02 05:32] VITALS: BP 121/73
[2017-11-02 07:43] LABS: Albumin 3.1 g/dL (3.4-5.0); BUN/Creatinine Ratio 9.8; Calcium 8.2 mg/dL (8.5-10.1); Potassium 4.2 mmol/L (3.5-5.1)
[2017-11-02 07:45] LABS: Basophils # (auto) 0.1 uL; Eosinophils # (auto) 0.8 uL; Eosinophils % (auto) 8.4 % (0.0-7.0); Hematocrit 40.5 % (41.0-53.0); Lymphocytes # (auto) 2.6 uL; Lymphocytes % (auto) 27.3 % (10.0-50.0); Mean Corpuscular Hemoglobin 30.3 pg (28.0-32.0); Mean Corpuscular Hgb Conc. 34.5 g/dL (32.0-36.0); Mean Corpuscular Volume 87.7 fL (80.0-100.0); Monocytes # (auto) 0.6 uL; Monocytes % (auto) 5.9 % (0.0-12.0); Neutrophils # (auto) 5.4 uL; Neutrophils % (auto) 57.4 % (37.0-80.0); Nucleated Red Blood Cells % 0.1 %; Platelet Count (auto) 184 10^3/uL (140-450); Red Blood Cells 4.62 10^6/uL (4.5-5.90); Red Cell Distribution Width 13.3 % (11.8-14.3); White Blood Cell 9.4 10^3/uL (4.4-10.8)
[2017-11-02 07:46] LABS: Bilirubin, Total 0.3 mg/dL (0.2-1.0)
[2017-11-02 09:04] VITALS: BP 109/80
[2017-11-02] MEDS ORDERED: ENOXAPARIN SOD 40 MG/0.4 ML SYRINGE SC SCH (10:00)
[2017-11-02] MEDS: cefTRIAXone 1GM/10ml IVPUSH 10 ML IV SCH (10:45)
[2017-11-02] MEDS: FAMOTIDINE 20 MG TAB PO SCH (10:45)
[2017-11-02 13:25] VITALS: BP 148/72
== END 2017-11-02 14:14 | disposition left against medical advice (07) | DRG 383 ==
LOC: ER 17:54 → TELE 17:55 → CENTRAL 22:01
PROVIDERS: ADMIT Nurse Practitioner; ATTEND Internal Medicine Pulmonary Disease
DX: L03.114 Cellulitis of left upper limb (principal); E44.1 Mild protein-calorie malnutrition; F11.10 Opioid abuse, uncomplicated; Z53.21 Procedure and treatment not carried out due to patient leaving prior to being seen by health care provider; F17.210 Nicotine dependence, cigarettes, uncomplicated; G47.00 Insomnia, unspecified; F15.10 Other stimulant abuse, uncomplicated; F12.10 Cannabis abuse, uncomplicated; Z68.30 Body mass index [BMI] 30.0-30.9, adult
CPT/HCPCS: 36415; 71045; 80053; 81001; 83605; 84484; 85025; 85610; 85730; 87040; 87081; 96361; 96374; J2543; J3490

== ENCOUNTER 2017-11-18 07:15 | Emergency (ER) | payer MEDICAID ==
[~2017-11-18] VITALS: Ht 177.8 cm; Wt 93.0 kg
[2017-11-18 07:28] VITALS: BP 123/80
[2017-11-18] MEDS ORDERED: cefTRIAXone SOD 1,000 MG VL IM ONE ×2 (08:30)
[2017-11-18] MEDS ORDERED: LIDOCAINE 1% (LOCAL ANESTH.) PF 5ml SDV ONE (08:39)
== END 2017-11-18 09:12 | disposition home or self-care (01) ==
LOC: ER 07:15
DX: L03.012 Cellulitis of left finger (principal); R60.9 Edema, unspecified; F17.210 Nicotine dependence, cigarettes, uncomplicated
CPT/HCPCS: 96372; 99284; J0696

== ENCOUNTER 2018-01-09 17:29 | Emergency (ER) | payer MEDICAID ==
[~2018-01-09] VITALS: Ht 177.8 cm; Wt 92.5 kg
[2018-01-09 17:35] VITALS: BP 134/78
[2018-01-09] MEDS ORDERED: cefTRIAXone SOD 1,000 MG VL IM ONE (19:15)
[2018-01-09] MEDS ORDERED: KETOROLAC TROMETH 60MG/2ML VIAL IM ONE (19:15)
== END 2018-01-09 20:00 | disposition home or self-care (01) ==
LOC: ER 17:29
DX: L03.116 Cellulitis of left lower limb (principal); M10.9 Gout, unspecified; F12.10 Cannabis abuse, uncomplicated; F15.10 Other stimulant abuse, uncomplicated; F14.10 Cocaine abuse, uncomplicated; F17.210 Nicotine dependence, cigarettes, uncomplicated
CPT/HCPCS: 96372; 99284; J0696; J1885

== ENCOUNTER 2018-01-10 19:59 | Inpatient (IN) | payer MEDICAID ==
[~2018-01-10] VITALS: Ht 177.8 cm; Wt 93.0 kg
[2018-01-11 01:41] LABS: Basophils # (auto) 0.1 uL; Basophils % (auto) 0.8 % (0.0-2.0); Eosinophils # (auto) 0.5 uL; Hematocrit 40.4 % (41.0-53.0); Hemoglobin 13.6 g/dL (13.5-17.5); Lymphocytes # (auto) 2.8 uL; Lymphocytes % (auto) 27.7 % (10.0-50.0); Mean Corpuscular Hemoglobin 30.4 pg (28.0-32.0); Mean Corpuscular Hgb Conc. 33.8 g/dL (32.0-36.0); Mean Corpuscular Volume 90.1 fL (80.0-100.0); Monocytes # (auto) 0.7 uL; Monocytes % (auto) 6.8 % (0.0-12.0); Neutrophils # (auto) 5.9 uL; Neutrophils % (auto) 59.7 % (37.0-80.0); Platelet Count (auto) 233 10^3/uL (140-450); Red Blood Cells 4.48 10^6/uL (4.5-5.90); Red Cell Distribution Width 13.8 % (11.8-14.3)
[2018-01-11 02:01] LABS: Albumin 3.4 g/dL (3.4-5.0); BUN/Creatinine Ratio 13.4; Calcium 8.6 mg/dL (8.5-10.1); Potassium 3.9 mmol/L (3.5-5.1)
[2018-01-11 02:03] LABS: Bilirubin, Total 0.3 mg/dL (0.2-1.0); Lactic Acid w/Reflex 2.6 mmol/L (0.4-2.0)
[2018-01-11] MEDS ORDERED: cefTRIAXone 1GM/10ml IVPUSH 10 ML IV ONE (02:15)
[2018-01-11] MEDS ORDERED: ONDANSETRON HCL 4 MG/2 ML VIAL IV PRN (03:45)
[2018-01-11] MEDS ORDERED: ACETAMINOPHEN 325 MG TAB PO PRN (03:45)
[2018-01-11] MEDS ORDERED: CLINDAMYCIN 600MG IV 50 ML IV SCH (06:00)
[2018-01-11 06:09] VITALS: BP 130/68
[2018-01-11 06:20] VITALS: BP 130/68
[2018-01-11] MEDS ORDERED: cefTRIAXone 1GM/10ml IVPUSH 10 ML IV SCH (09:00)
[2018-01-11 09:05] VITALS: BP 141/83
[2018-01-11 09:31] LABS: Alcohol, Urine < 3.0 mg/dL (0-5); Amphetamine Screen, Urine POSITIVE (NEGATIVE); Barbiturate Scree,Urine NEGATIVE (NEGATIVE); Benzodiazephine Screen, Urine NEGATIVE (NEGATIVE); Cannabinoid Screen, Urine NEGATIVE (NEGATIVE); Cocaine Screen, Urine NEGATIVE (NEGATIVE); Opiate Scree,Urine POSITIVE (NEGATIVE); Phencyclidine Screen, Urine NEGATIVE (NEGATIVE)
[2018-01-11] MEDS ORDERED: FAMOTIDINE 20 MG TAB PO SCH (10:00)
[2018-01-12] MEDS ORDERED: CHLORHEXIDINE 4% TOPICAL soln 237ML TOP SCH (10:00)
== END 2018-01-11 10:55 | disposition left against medical advice (07) | DRG 383 ==
LOC: ER 19:59 → OVERFLOW 20:00 → WEST WING 01-11 04:52
PROVIDERS: ADMIT Nurse Practitioner; ATTEND Internal Medicine
DX: L03.116 Cellulitis of left lower limb (principal); F11.10 Opioid abuse, uncomplicated; L03.115 Cellulitis of right lower limb; Z53.21 Procedure and treatment not carried out due to patient leaving prior to being seen by health care provider
CPT/HCPCS: 36415; 73700; 80053; 80307; 83605; 85025; 87040; 96374; J0696; J3490

== ENCOUNTER 2018-01-16 18:07 | Emergency (ER) | payer MEDICAID ==
[~2018-01-16] VITALS: Ht 177.8 cm; Wt 5.8 kg
[2018-01-16 18:22] VITALS: BP 123/87
== END 2018-01-16 21:00 | disposition left against medical advice (07) ==
LOC: ER 18:07
DX: M25.571 Pain in right ankle and joints of right foot (principal); Z53.21 Procedure and treatment not carried out due to patient leaving prior to being seen by health care provider

== ENCOUNTER 2018-02-24 14:01 | Emergency (ER) | payer MEDICAID ==
[~2018-02-24] VITALS: Ht 175.3 cm; Wt 99.8 kg
[2018-02-24 15:49] VITALS: BP 133/85
== END 2018-02-24 16:23 | disposition home or self-care (01) ==
LOC: ER 14:01
DX: L03.114 Cellulitis of left upper limb (principal); F17.210 Nicotine dependence, cigarettes, uncomplicated; F12.10 Cannabis abuse, uncomplicated; F15.10 Other stimulant abuse, uncomplicated; F11.10 Opioid abuse, uncomplicated

== ENCOUNTER 2018-02-26 14:48 | Emergency (ER) | payer MEDICAID ==
[~2018-02-26] VITALS: Ht 177.8 cm; Wt 95.3 kg
[2018-02-26 14:54] VITALS: BP 145/92
== END 2018-02-26 15:14 | disposition home or self-care (01) ==
LOC: ER 14:51
DX: L02.414 Cutaneous abscess of left upper limb (principal); F17.210 Nicotine dependence, cigarettes, uncomplicated

== ENCOUNTER 2018-09-08 10:10 | Emergency (ER) | payer MEDICAID ==
[~2018-09-08] VITALS: Ht 170.2 cm; Wt 81.6 kg
[2018-09-08] MEDS ORDERED: SODIUM CHLORIDE 0.9% 1,000 ML IVB ONE (10:50)
[2018-09-08] MEDS ORDERED: NALOXONE HCL 0.4 MG/ML VIAL IV ONE (11:00)
[2018-09-08 11:09] LABS: Basophils # (auto) 0.1 uL; Basophils % (auto) 0.9 % (0.0-2.0); Eosinophils # (auto) 0.1 uL; Eosinophils % (auto) 1.3 % (0.0-7.0); Hematocrit 40.3 % (41.0-53.0); Lymphocytes # (auto) 1.7 uL; Lymphocytes % (auto) 22.6 % (10.0-50.0); Mean Corpuscular Hgb Conc. 34.6 g/dL (32.0-36.0); Mean Corpuscular Volume 89.4 fL (80.0-100.0); Monocytes # (auto) 0.7 uL; Neutrophils % (auto) 66.2 % (37.0-80.0); Nucleated Red Blood Cells % 0.2 %; Platelet Count (auto) 175 10^3/uL (140-450); Red Blood Cells 4.51 10^6/uL (4.5-5.90); Red Cell Distribution Width 12.9 % (11.8-14.3); White Blood Cell 7.6 10^3/uL (4.4-10.8)
[2018-09-08 11:21] LABS: Alanine Aminotransferase 73 U/L (16-61); Albumin 4.3 g/dL (3.4-5.0); Anion Gap 10 (5-15); Blood Alcohol < 3.0 mg/dL (0-5); Blood Urea Nitrogen 25 mg/dL (7-18); Calcium 8.6 mg/dL (8.5-10.1); Carbon Dioxide 22 mmol/L (21-32); Chloride 107 mmol/L (98-107); Glucose 142 mg/dL (74-106); Potassium 4.4 mmol/L (3.5-5.1); Sodium 139 mmol/L (136-145)
[2018-09-08 11:27] LABS: Alkaline Phosphatase 55 U/L (45-117); Aspartate Aminotransferase 77 U/L (15-37); BUN/Creatinine Ratio 17.9; Bilirubin, Total 1.6 mg/dL (0.2-1.0); GFR African American 73 mL/min; GFR Non-African American 60 mL/min; Total Protein 7.9 g/dL (6.4-8.2)
[2018-09-08 12:24] LABS: Urine WBC None Seen /hpf (0 - 3)
[2018-09-08 12:33] LABS: Urine Bacteria NONE SEEN /hpf (None Seen); Urine Blood TRACE /uL (Negative); Urine Sperm PRESENT /hpf (None Seen)
[2018-09-08 12:50] LABS: Alcohol, Urine < 3.0 mg/dL (0-5); Amphetamine Screen, Urine POSITIVE (NEGATIVE); Barbiturate Scree,Urine NEGATIVE (NEGATIVE); Benzodiazephine Screen, Urine NEGATIVE (NEGATIVE); Cannabinoid Screen, Urine NEGATIVE (NEGATIVE); Cocaine Screen, Urine NEGATIVE (NEGATIVE); Opiate Scree,Urine POSITIVE (NEGATIVE); Phencyclidine Screen, Urine NEGATIVE (NEGATIVE)
[2018-09-08 15:18] VITALS: BP 133/89
== END 2018-09-08 15:21 | disposition home or self-care (01) ==
LOC: EDBD 10:10 → ER 10:11
DX: F11.10 Opioid abuse, uncomplicated (principal); F12.10 Cannabis abuse, uncomplicated; F15.10 Other stimulant abuse, uncomplicated; R41.82 Altered mental status, unspecified; R73.9 Hyperglycemia, unspecified
CPT/HCPCS: 36415; 70450; 80053; 80307; 80320; 81001; 82962; 84484; 85025; 94761; 96374; 99284; J2310; J7030

== ENCOUNTER → 2019-04-13 | Emergency (ER) | payer MEDICAID | END | disposition left against medical advice (07) | LOC: ER 23:54 | DX: Z53.21 Procedure and treatment not carried out due to patient leaving prior to being seen by health care provider (principal) ==

== ENCOUNTER 2019-06-18 10:56 | Emergency (ER) | payer MEDICAID ==
[~2019-06-18] VITALS: Ht 177.8 cm; Wt 90.7 kg
[2019-06-18 10:58] VITALS: BP 115/78
== END 2019-06-18 16:30 | disposition left against medical advice (07) ==
LOC: ER 10:56
DX: M79.641 Pain in right hand (principal); Z53.21 Procedure and treatment not carried out due to patient leaving prior to being seen by health care provider

== ENCOUNTER 2019-06-24 21:38 | Emergency (ER) | payer MEDICAID ==
[~2019-06-24] VITALS: Ht 177.8 cm; Wt 90.7 kg
[2019-06-25 01:34] VITALS: BP 130/93
== END 2019-06-25 02:07 | disposition home or self-care (01) ==
LOC: ER 21:42
DX: J06.9 Acute upper respiratory infection, unspecified (principal); F17.210 Nicotine dependence, cigarettes, uncomplicated
CPT/HCPCS: 71045

== ENCOUNTER 2020-04-09 16:17 | Emergency (ER) | payer MEDICAID ==
[~2020-04-09] VITALS: Ht 177.8 cm; Wt 88.5 kg
[2020-04-09 16:36] VITALS: BP 131/91
[2020-04-09] MEDS ORDERED: KETOROLAC TROMETH 60MG/2ML VIAL IM ONE (19:15)
[2020-04-09] MEDS ORDERED: cefTRIAXone SOD 1,000 MG VL IM ONE (19:15)
== END 2020-04-09 19:39 | disposition home or self-care (01) ==
LOC: ER 16:17
DX: L03.115 Cellulitis of right lower limb (principal); M79.89 Other specified soft tissue disorders
CPT/HCPCS: 73610; 73630; 96372; 99284; J0696; J1885

== ENCOUNTER 2020-11-28 18:27 | Emergency (ER) | payer MEDICAID ==
[~2020-11-28] VITALS: Ht 177.8 cm; Wt 86.2 kg
[2020-11-28 19:28] VITALS: BP 171/99
[2020-11-28] MEDS ORDERED: MORPHINE SULF INJ 2 MG/ML SYRINGE 1ML IM ONE (20:15)
[2020-11-28 21:49] LABS: Basophils # (auto) 0.1 10 ^3/uL (0-0.2); Basophils % (auto) 0.5 % (0.0-2.0); Eosinophils # (auto) 0.5 10 ^3/uL (0-0.8); Eosinophils % (auto) 5.7 % (0.0-7.0); Hematocrit 35.4 % (41.0-53.0); Hemoglobin 12.5 g/dL (13.5-17.5); Lymphocytes % (auto) 20.9 % (10.0-50.0); Mean Corpuscular Hgb Conc. 35.2 g/dL (32.0-36.0); Monocytes # (auto) 0.6 10 ^3/uL (0-1.3); Monocytes % (auto) 6.5 % (0.0-12.0); Neutrophils # (auto) 6.3 10 ^3/uL (1.6-8.6); Neutrophils % (auto) 66.4 % (37.0-80.0); Platelet Count (auto) 201 10^3/uL (140-450); Red Blood Cells 4.16 10^6/uL (4.5-5.90); Red Cell Distribution Width 14.1 % (11.8-14.3); White Blood Cell 9.5 10^3/uL (4.4-10.8)
[2020-11-28 22:12] LABS: Albumin 3.2 g/dL (3.4-5.0); Calcium 7.8 mg/dL (8.5-10.1); Potassium 3.2 mmol/L (3.5-5.1); Uric Acid 8.6 mg/dL (3.5-7.2)
[2020-11-28 22:15] LABS: BUN/Creatinine Ratio 14.4; Bilirubin, Total 0.4 mg/dL (0.2-1.0); Total Protein 7.2 g/dL (6.4-8.2)
[2020-11-28] MEDS ORDERED: INDOMETHACIN 25 MG CAP PO ONE (23:30)
[2020-11-28] MEDS ORDERED: CLINDAMYCIN 900MG IV 50 ML IV ONE (23:30)
== END 2020-11-29 00:30 | disposition home or self-care (01) ==
LOC: ER 18:27
DX: M10.9 Gout, unspecified (principal); J45.909 Unspecified asthma, uncomplicated; F17.210 Nicotine dependence, cigarettes, uncomplicated
CPT/HCPCS: 36415; 80053; 83605; 84550; 85025; 85049; 96372; 99283; J2270

== ENCOUNTER 2020-11-30 07:37 | Emergency (ER) | payer MEDICAID ==
[~2020-11-30] VITALS: Ht 177.8 cm; Wt 88.5 kg
[2020-11-30 08:01] VITALS: BP 145/98
[2020-11-30] MEDS ORDERED: methylPREDNISolone SOD SUCC 125 MG/2 ML VL IV ONE (08:45)
[2020-11-30] MEDS ORDERED: CLINDAMYCIN 300MG IV 50 ML IV ONE (08:45)
== END 2020-11-30 11:04 | disposition home or self-care (01) ==
LOC: ER 07:37
DX: L03.116 Cellulitis of left lower limb (principal); J45.909 Unspecified asthma, uncomplicated; F17.210 Nicotine dependence, cigarettes, uncomplicated
CPT/HCPCS: 73620; 93971; 96365; 96375; 99284; J2930; J3490

== ENCOUNTER 2021-11-19 18:33 | Emergency (ER) | payer MEDICAID | END 2021-11-19 19:14 | disposition left against medical advice (07) | LOC: ER 18:33 | DX: R06.02 Shortness of breath (principal); J02.9 Acute pharyngitis, unspecified; Z53.21 Procedure and treatment not carried out due to patient leaving prior to being seen by health care provider ==

== ENCOUNTER 2022-05-09 10:45 | Emergency (ER) | payer MEDICAID ==
[~2022-05-09] VITALS: Ht 177.8 cm; Wt 78.0 kg
[2022-05-09 11:27] LABS: Basophils # (auto) 0.1 10 ^3/uL (0-0.2); Basophils % (auto) 0.9 % (0.0-2.0); Eosinophils # (auto) 0.4 10 ^3/uL (0-0.8); Eosinophils % (auto) 3.7 % (0.0-7.0); Hematocrit 37.5 % (41.0-53.0); Hemoglobin 12.7 g/dL (13.5-17.5); Lymphocytes # (auto) 2.5 10 ^3/uL (0.4-5.4); Lymphocytes % (auto) 22.5 % (10.0-50.0); Mean Corpuscular Hemoglobin 30.3 pg (28.0-32.0); Mean Corpuscular Hgb Conc. 33.7 g/dL (32.0-36.0); Mean Corpuscular Volume 89.8 fL (80.0-100.0); Monocytes # (auto) 0.7 10 ^3/uL (0-1.3); Monocytes % (auto) 6.8 % (0.0-12.0); Neutrophils # (auto) 7.2 10 ^3/uL (1.6-8.6); Neutrophils % (auto) 66.1 % (37.0-80.0); Nucleated Red Blood Cells % 0.2 %; Red Blood Cells 4.18 10^6/uL (4.5-5.90); White Blood Cell 10.9 10^3/uL (4.4-10.8)
[2022-05-09 11:31] VITALS: BP 128/87
[2022-05-09 11:44] LABS: Albumin 3.8 g/dL (3.4-5.0); BUN/Creatinine Ratio 25.7; Calcium 9.1 mg/dL (8.5-10.1); Magnesium 2.6 mg/dL (1.6-2.6); Potassium 4.2 mmol/L (3.5-5.1)
[2022-05-09 11:47] LABS: Bilirubin, Total 0.6 mg/dL (0.2-1.0); Total Protein 8.1 g/dL (6.4-8.2)
== END 2022-05-09 19:24 | disposition home or self-care (01) ==
LOC: ER 10:45
DX: G56.02 Carpal tunnel syndrome, left upper limb (principal); G89.29 Other chronic pain; M25.572 Pain in left ankle and joints of left foot; M25.571 Pain in right ankle and joints of right foot; J45.909 Unspecified asthma, uncomplicated; F17.210 Nicotine dependence, cigarettes, uncomplicated
CPT/HCPCS: 36415; 71046; 73080; 80053; 83735; 83880; 84484; 85025; 93005

== ENCOUNTER 2022-10-06 18:44 | Emergency (ER) | payer MEDICAID ==
[~2022-10-06] VITALS: Ht 175.3 cm; Wt 200.0 kg
[~2022-10-06 18:44] MED LIST: ACET-1158 PO; SULF800T7 PO
[2022-10-06 19:48] VITALS: BP 149/101
== END 2022-10-06 23:50 | disposition left against medical advice (07) ==
LOC: ER 18:44
DX: M25.471 Effusion, right ankle (principal); Z53.21 Procedure and treatment not carried out due to patient leaving prior to being seen by health care provider

== ENCOUNTER 2022-11-13 21:28 | Emergency (ER) | payer MEDICAID ==
[~2022-11-13] VITALS: Ht 177.8 cm; Wt 83.0 kg
[~2022-11-13 21:28] MED LIST changes: -ACET-1158 PO; +ACET500T58 PO; +SULF800T23 PO; -SULF800T7 PO
[2022-11-13 21:44] VITALS: BP 147/89
== END 2022-11-14 00:36 | disposition left against medical advice (07) ==
LOC: ER 21:28
DX: R05.9 Cough, unspecified (principal); J02.9 Acute pharyngitis, unspecified; R09.3 Abnormal sputum; Z53.21 Procedure and treatment not carried out due to patient leaving prior to being seen by health care provider; Z20.822 Contact with and (suspected) exposure to COVID-19
CPT/HCPCS: 36415; 87426; 87804

== ENCOUNTER 2022-11-15 09:44 | Emergency (ER) | payer MEDICAID ==
[~2022-11-15] VITALS: Ht 177.8 cm; Wt 90.0 kg
[2022-11-15] MEDS ORDERED: NALOXONE HCL 0.4 MG/ML VIAL SUBCUT ONE (10:00)
[2022-11-15 10:29] LABS: Basophils # (auto) 0.1 10 ^3/uL (0-0.2); Basophils % (auto) 1.1 % (0.0-2.0); Eosinophils # (auto) 0.4 10 ^3/uL (0-0.8); Eosinophils % (auto) 6.1 % (0.0-7.0); Hematocrit 38.4 % (41.0-53.0); Lymphocytes # (auto) 2.3 10 ^3/uL (0.4-5.4); Lymphocytes % (auto) 38.1 % (10.0-50.0); Mean Corpuscular Hemoglobin 29.3 pg (28.0-32.0); Mean Corpuscular Hgb Conc. 33.8 g/dL (32.0-36.0); Mean Corpuscular Volume 86.7 fL (80.0-100.0); Monocytes # (auto) 0.4 10 ^3/uL (0-1.3); Neutrophils # (auto) 2.8 10 ^3/uL (1.6-8.6); Neutrophils % (auto) 47.7 % (37.0-80.0); Nucleated Red Blood Cells % 0.2 %; Red Blood Cells 4.43 10^6/uL (4.5-5.90); Red Cell Distribution Width 13.7 % (11.8-14.3)
[2022-11-15] MEDS ORDERED: SODIUM CHLORIDE 0.9% 1,000 ML IV ONE (10:45)
[2022-11-15 10:55] LABS: Albumin 3.7 g/dL (3.4-5.0); Calcium 8.6 mg/dL (8.5-10.1); Potassium 3.8 mmol/L (3.5-5.1)
[2022-11-15 11:21] LABS: BUN/Creatinine Ratio 16.9 (10.0-20.0); Bilirubin, Total 0.4 mg/dL (0.2-1.0); Total Protein 7.6 g/dL (6.4-8.2)
[2022-11-15 11:53] LABS: Urine Bacteria FEW /hpf (None Seen); Urine Blood Negative /uL (Negative); Urine Specific Gravity 1.011 (1.001-1.035); Urine WBC 1 /hpf (0 - 3)
[2022-11-15 12:12] LABS: Alcohol, Urine < 3.0 mg/dL (0-10); Amphetamine Screen, Urine NEGATIVE (NEGATIVE); Barbiturate Scree,Urine NEGATIVE (NEGATIVE); Benzodiazephine Screen, Urine NEGATIVE (NEGATIVE); Cannabinoid Screen, Urine NEGATIVE (NEGATIVE); Cocaine Screen, Urine NEGATIVE (NEGATIVE); Opiate Scree,Urine NEGATIVE (NEGATIVE); Phencyclidine Screen, Urine NEGATIVE (NEGATIVE)
[2022-11-15 12:52] VITALS: BP 151/84
== END 2022-11-15 12:57 | disposition home or self-care (01) ==
LOC: ER 09:44
DX: T40.411A Poisoning by fentanyl or fentanyl analogs, accidental (unintentional), initial encounter (principal); J45.909 Unspecified asthma, uncomplicated; F17.210 Nicotine dependence, cigarettes, uncomplicated; F12.10 Cannabis abuse, uncomplicated; F15.10 Other stimulant abuse, uncomplicated; F11.10 Opioid abuse, uncomplicated; Y92.89 Other specified places as the place of occurrence of the external cause
CPT/HCPCS: 36415; 80053; 80307; 81001; 85025; 96360; 96372; 99283; J7030

== ENCOUNTER 2022-11-24 17:17 | Emergency (ER) | payer MEDICAID ==
[~2022-11-24] VITALS: Ht 177.8 cm; Wt 82.2 kg
[2022-11-24 17:30] VITALS: BP 196/86
[2022-11-24 19:01] LABS: Basophils # (auto) 0.1 10 ^3/uL (0-0.2); Basophils % (auto) 0.9 % (0.0-2.0); Eosinophils # (auto) 0.2 10 ^3/uL (0-0.8); Eosinophils % (auto) 2.4 % (0.0-7.0); Hematocrit 41.9 % (41.0-53.0); Hemoglobin 14.1 g/dL (13.5-17.5); Lymphocytes # (auto) 2.2 10 ^3/uL (0.4-5.4); Lymphocytes % (auto) 26.8 % (10.0-50.0); Mean Corpuscular Hemoglobin 29.5 pg (28.0-32.0); Mean Corpuscular Hgb Conc. 33.7 g/dL (32.0-36.0); Mean Corpuscular Volume 87.6 fL (80.0-100.0); Monocytes # (auto) 0.3 10 ^3/uL (0-1.3); Monocytes % (auto) 3.5 % (0.0-12.0); Neutrophils # (auto) 5.4 10 ^3/uL (1.6-8.6); Neutrophils % (auto) 66.4 % (37.0-80.0); Red Blood Cells 4.79 10^6/uL (4.5-5.90); White Blood Cell 8.1 10^3/uL (4.4-10.8)
[2022-11-24] MEDS ORDERED: BUPR2MIS SL (19:08)
[2022-11-24 19:11] LABS: Albumin 3.8 g/dL (3.4-5.0); Anion Gap 8 (5-15); Blood Urea Nitrogen 15 mg/dL (7-18); Calcium 8.8 mg/dL (8.5-10.1); Carbon Dioxide 26 mmol/L (21-32); Chloride 108 mmol/L (98-107); Glucose 120 mg/dL (74-106); Potassium 3.8 mmol/L (3.5-5.1); Salicylate < 1.7 mg/dL (2.8-20.0); Sodium 142 mmol/L (136-145)
[2022-11-24 19:13] LABS: BUN/Creatinine Ratio 10.9 (10.0-20.0); GFR African American 73 mL/min; GFR Non-African American 60 mL/min
[2022-11-24 19:16] LABS: Alanine Aminotransferase 90 U/L (16-61); Alkaline Phosphatase 84 U/L (45-117); Aspartate Aminotransferase 79 U/L (15-37); Bilirubin, Total 0.5 mg/dL (0.2-1.0)
[2022-11-24 19:18] LABS: Acetaminophen < 2.0 ug/mL (10-30)
[2022-11-24 19:22] LABS: Blood Alcohol < 3.0 mg/dL (<10)
== END 2022-11-24 19:54 | disposition home or self-care (01) ==
LOC: ER 17:17
DX: F11.10 Opioid abuse, uncomplicated (principal); F41.9 Anxiety disorder, unspecified; J45.909 Unspecified asthma, uncomplicated; F17.210 Nicotine dependence, cigarettes, uncomplicated; F15.90 Other stimulant use, unspecified, uncomplicated; F19.90 Other psychoactive substance use, unspecified, uncomplicated; Z79.1 Long term (current) use of non-steroidal anti-inflammatories (NSAID); Z79.899 Other long term (current) drug therapy
CPT/HCPCS: 36415; 80053; 80320; 80329; 85025

== ENCOUNTER 2022-12-13 11:05 | Emergency (ER) | payer MEDICAID ==
[~2022-12-13] VITALS: Ht 175.3 cm; Wt 84.9 kg
[~2022-12-13 11:05] MED LIST changes: +BUPR2MIS SL
[2022-12-13 11:08] VITALS: BP 152/103; PULSE 82; RESP 20; O2SAT 98
[2022-12-13 12:32] LABS: Alcohol, Urine < 3.0 mg/dL (0-10); Amphetamine Screen, Urine POSITIVE (NEGATIVE); Barbiturate Scree,Urine NEGATIVE (NEGATIVE); Cannabinoid Screen, Urine POSITIVE (NEGATIVE)
[2022-12-13 12:40] LABS: Benzodiazephine Screen, Urine NEGATIVE (NEGATIVE); Cocaine Screen, Urine NEGATIVE (NEGATIVE); Opiate Scree,Urine NEGATIVE (NEGATIVE); Phencyclidine Screen, Urine NEGATIVE (NEGATIVE)
== END 2022-12-13 14:00 | disposition home or self-care (01) ==
LOC: ER 11:05
DX: F15.10 Other stimulant abuse, uncomplicated (principal); J45.909 Unspecified asthma, uncomplicated; I10 Essential (primary) hypertension; F17.210 Nicotine dependence, cigarettes, uncomplicated; F12.10 Cannabis abuse, uncomplicated; F11.10 Opioid abuse, uncomplicated; Z79.899 Other long term (current) drug therapy
CPT/HCPCS: 36415; 80307; 80320

== ENCOUNTER 2023-05-08 19:30 | Emergency (ER) | payer MEDICAID ==
[~2023-05-08] VITALS: Ht 177.8 cm; Wt 96.3 kg
[2023-05-08 20:29] LABS: Basophils # (auto) 0.1 10 ^3/uL (0-0.2); Basophils % (auto) 0.8 % (0.0-2.0); Eosinophils # (auto) 0.6 10 ^3/uL (0-0.8); Eosinophils % (auto) 6.3 % (0.0-7.0); Hemoglobin 14.6 g/dL (13.5-17.5); Lymphocytes # (auto) 3.7 10 ^3/uL (0.4-5.4); Lymphocytes % (auto) 40.9 % (10.0-50.0); Mean Corpuscular Hgb Conc. 34.7 g/dL (32.0-36.0); Mean Corpuscular Volume 89.2 fL (80.0-100.0); Monocytes # (auto) 0.5 10 ^3/uL (0-1.3); Monocytes % (auto) 4.9 % (0.0-12.0); Neutrophils # (auto) 4.3 10 ^3/uL (1.6-8.6); Neutrophils % (auto) 47.1 % (37.0-80.0); Nucleated Red Blood Cells % 0.1 %; Red Blood Cells 4.71 10^6/uL (4.5-5.90); Red Cell Distribution Width 13.1 % (11.8-14.3); White Blood Cell 9.2 10^3/uL (4.4-10.8)
[2023-05-08 20:44] LABS: INR 1.14 (0.9-1.15); Partial Thromboplastin Time 31.4 SEC (24.5-34.5); Prothrombin Time 11.9 sec (9.3-11.8)
[2023-05-08] MEDS ORDERED: ASPirin-EC 81 mg tab PO ONE ×3 (20:45→21:00)
[2023-05-08 20:53] LABS: Alanine Aminotransferase 97 U/L (7-40); Albumin 4.7 g/dL (3.2-4.8); Alkaline Phosphatase 69 U/L (46-116); Anion Gap 10 (5-15); Aspartate Aminotransferase 70 U/L (13-40); BUN/Creatinine Ratio 19.9 (10.0-20.0); Bilirubin, Total 0.4 mg/dL (0.2-1.0); Blood Urea Nitrogen 31 mg/dL (9-23); Carbon Dioxide 23 mmol/L (20-30); Chloride 106 mmol/L (98-107); Glucose 104 mg/dL (74-106); Magnesium 1.7 mg/dL (1.6-2.6); Potassium 3.8 mmol/L (3.5-5.1); Sodium 139 mmol/L (136-145); Total Protein 7.6 g/dL (5.7-8.2)
[2023-05-08] MEDS ORDERED: LORazepam 0.5 MG TAB PO ONE (21:15)
[2023-05-08 21:16] LABS: Urine WBC None Seen /hpf (0 - 3)
[2023-05-08 21:24] LABS: Urine Bacteria NONE SEEN /hpf (None Seen); Urine Blood Negative /uL (Negative); Urine Clarity Clear (Clear); Urine Protein, UAD Negative (Negative); Urine Specific Gravity 1.011 (1.001-1.035); Urine Urobilinogen Normal (Negative)
[2023-05-08 21:37] LABS: Urine Color STRAW (Yellow)
[2023-05-08] MEDS ORDERED: VALS40TA2 PO (21:53)
[2023-05-08 22:16] VITALS: TEMP 97.9
[2023-05-08] MEDS ORDERED: amLODIPine BESYLATE 5 MG TAB PO ONE (22:30)
[2023-05-08 23:10] VITALS: BP 176/110; PULSE 60; RESP 18; O2SAT 97
== END 2023-05-08 23:12 | disposition home or self-care (01) ==
LOC: ER 19:30
DX: R07.89 Other chest pain (principal); I10 Essential (primary) hypertension; F17.210 Nicotine dependence, cigarettes, uncomplicated; J45.909 Unspecified asthma, uncomplicated; Z79.899 Other long term (current) drug therapy
CPT/HCPCS: 36415; 71045; 80053; 81001; 83690; 83735; 83880; 84484; 85025; 85379; 85610; 85730; 93005

== ENCOUNTER 2023-05-12 01:30 | Emergency (ER) | payer MEDICAID ==
[~2023-05-12] VITALS: Ht 177.8 cm; Wt 95.2 kg
[~2023-05-12 01:30] MED LIST changes: +VALS40TA2 PO
[2023-05-12] MEDS ORDERED: cloNIDine HCL 0.1 MG TAB PO ONE (01:45)
[2023-05-12 02:48] LABS: Urine WBC None Seen /hpf (0 - 3)
[2023-05-12 03:11] LABS: Urine Bacteria NONE SEEN /hpf (None Seen); Urine Blood Negative /uL (Negative); Urine Clarity Clear (Clear); Urine Color Colorless (Yellow); Urine Protein, UAD Negative (Negative); Urine Specific Gravity 1.004 (1.001-1.035); Urine Urobilinogen Normal (Negative); Urine pH 6.5 (5.0-8.0)
[2023-05-12 03:50] VITALS: BP 132/82; PULSE 63; RESP 16; TEMP 97.8; O2SAT 97
== END 2023-05-12 03:52 | disposition home or self-care (01) ==
LOC: ER 01:30
DX: I16.0 Hypertensive urgency (principal); I10 Essential (primary) hypertension; J45.909 Unspecified asthma, uncomplicated; F17.210 Nicotine dependence, cigarettes, uncomplicated; F12.10 Cannabis abuse, uncomplicated; F15.10 Other stimulant abuse, uncomplicated; F14.10 Cocaine abuse, uncomplicated
CPT/HCPCS: 81001; 93005

== ENCOUNTER 2023-05-21 02:32 | Emergency (ER) | payer MEDICAID ==
[~2023-05-21] VITALS: Ht 175.3 cm; Wt 95.5 kg
[2023-05-21] MEDS ORDERED: cloNIDine HCL 0.1 MG TAB PO ONE (03:15)
[2023-05-21 04:12] LABS: Basophils # (auto) 0.1 10 ^3/uL (0-0.2); Basophils % (auto) 0.8 % (0.0-2.0); Eosinophils # (auto) 0.7 10 ^3/uL (0-0.8); Eosinophils % (auto) 8.6 % (0.0-7.0); Hematocrit 42.7 % (41.0-53.0); Hemoglobin 14.6 g/dL (13.5-17.5); Lymphocytes # (auto) 2.9 10 ^3/uL (0.4-5.4); Lymphocytes % (auto) 34.8 % (10.0-50.0); Mean Corpuscular Hemoglobin 30.9 pg (28.0-32.0); Mean Corpuscular Hgb Conc. 34.3 g/dL (32.0-36.0); Monocytes # (auto) 0.5 10 ^3/uL (0-1.3); Monocytes % (auto) 5.6 % (0.0-12.0); Neutrophils # (auto) 4.1 10 ^3/uL (1.6-8.6); Neutrophils % (auto) 50.2 % (37.0-80.0); Nucleated Red Blood Cells % 0.2 %; Red Blood Cells 4.75 10^6/uL (4.5-5.90); Red Cell Distribution Width 12.9 % (11.8-14.3); White Blood Cell 8.2 10^3/uL (4.4-10.8)
[2023-05-21 04:27] LABS: Alanine Aminotransferase 115 U/L (7-40); Albumin 4.6 g/dL (3.2-4.8); Alkaline Phosphatase 60 U/L (46-116); Anion Gap 10 (5-15); Aspartate Aminotransferase 80 U/L (13-40); BUN/Creatinine Ratio 7.6 (10.0-20.0); Bilirubin, Total 0.6 mg/dL (0.2-1.0); Blood Urea Nitrogen 11 mg/dL (9-23); Calcium 9.2 mg/dL (8.7-10.4); Carbon Dioxide 19 mmol/L (20-30); Chloride 108 mmol/L (98-107); Glucose 110 mg/dL (74-106); Potassium 4.2 mmol/L (3.5-5.1); Sodium 137 mmol/L (136-145)
[2023-05-21 04:28] LABS: Total Protein 7.6 g/dL (5.7-8.2)
[2023-05-21 05:33] VITALS: BP 120/79; PULSE 79; RESP 19; TEMP 98.1; O2SAT 98
== END 2023-05-21 06:13 | disposition home or self-care (01) ==
LOC: ER 02:32
DX: I12.9 Hypertensive chronic kidney disease with stage 1 through stage 4 chronic kidney disease, or unspecified chronic kidney disease (principal); N18.9 Chronic kidney disease, unspecified; J45.909 Unspecified asthma, uncomplicated; F17.210 Nicotine dependence, cigarettes, uncomplicated; F12.10 Cannabis abuse, uncomplicated; F15.10 Other stimulant abuse, uncomplicated; F14.10 Cocaine abuse, uncomplicated; R51.9 Headache, unspecified
CPT/HCPCS: 36415; 70450; 71045; 80053; 84484; 85025; 93005

== ENCOUNTER 2023-05-23 03:53 | Emergency (ER) | payer MEDICAID ==
[~2023-05-23] VITALS: Ht 175.3 cm; Wt 95.1 kg
[2023-05-23 04:24] VITALS: O2SAT 96
[2023-05-23] MEDS ORDERED: ALBUTEROL SULF 2.5 MG/0.5ML(0.5%) NEB SOLN NEB ONE (07:00)
[2023-05-23] MEDS ORDERED: IPRATROPIUM BROM 0.5 MG/2.5ML INH SOL NEB ONE (07:00)
[2023-05-23] MEDS ORDERED: DexAMETHasone SOD PHOS 10MG/1ML VIAL INJ IM ONE (07:00)
[2023-05-23 07:24] VITALS: BP 137/90; PULSE 70; RESP 20; TEMP 97.8
[2023-05-23 08:05] LABS: Basophils # (auto) 0.1 10 ^3/uL (0-0.2); Basophils % (auto) 0.9 % (0.0-2.0); Eosinophils # (auto) 0.5 10 ^3/uL (0-0.8); Eosinophils % (auto) 7.4 % (0.0-7.0); Hematocrit 43.5 % (41.0-53.0); Hemoglobin 14.9 g/dL (13.5-17.5); Lymphocytes # (auto) 2.3 10 ^3/uL (0.4-5.4); Lymphocytes % (auto) 32.4 % (10.0-50.0); Mean Corpuscular Hemoglobin 30.6 pg (28.0-32.0); Mean Corpuscular Hgb Conc. 34.2 g/dL (32.0-36.0); Mean Corpuscular Volume 89.5 fL (80.0-100.0); Monocytes # (auto) 0.3 10 ^3/uL (0-1.3); Monocytes % (auto) 4.2 % (0.0-12.0); Neutrophils # (auto) 3.9 10 ^3/uL (1.6-8.6); Neutrophils % (auto) 55.1 % (37.0-80.0); Red Blood Cells 4.86 10^6/uL (4.5-5.90); Red Cell Distribution Width 12.9 % (11.8-14.3); White Blood Cell 7.1 10^3/uL (4.4-10.8)
[2023-05-23 08:23] LABS: Alanine Aminotransferase 116 U/L (7-40); Albumin 4.8 g/dL (3.2-4.8); Alkaline Phosphatase 61 U/L (46-116); Anion Gap 9 (5-15); Aspartate Aminotransferase 78 U/L (13-40); BUN/Creatinine Ratio 12.9 (10.0-20.0); Bilirubin, Total 0.7 mg/dL (0.2-1.0); Blood Urea Nitrogen 19 mg/dL (9-23); Calcium 9.9 mg/dL (8.5-10.1); Carbon Dioxide 24 mmol/L (20-30); Chloride 108 mmol/L (98-107); Glucose 110 mg/dL (74-106); Potassium 4.6 mmol/L (3.5-5.1); Sodium 141 mmol/L (136-145); Total Protein 7.8 g/dL (5.7-8.2)
[2023-05-23] MEDS ORDERED: CLON0.1T PO (08:43)
== END 2023-05-23 08:59 | disposition home or self-care (01) ==
LOC: ER 03:53
DX: I10 Essential (primary) hypertension (principal); J45.909 Unspecified asthma, uncomplicated; F17.210 Nicotine dependence, cigarettes, uncomplicated; F12.10 Cannabis abuse, uncomplicated; F15.10 Other stimulant abuse, uncomplicated; F11.10 Opioid abuse, uncomplicated
CPT/HCPCS: 36415; 80053; 83880; 84484; 85025; 93005

== ENCOUNTER 2023-05-23 14:56 | Emergency (ER) | payer MEDICAID ==
[~2023-05-23] VITALS: Ht 175.3 cm; Wt 96.0 kg
[~2023-05-23 14:56] MED LIST changes: +CLON0.1T PO
[2023-05-23] MEDS ORDERED: amLODIPine BESYLATE 5 MG TAB PO ONE (15:30)
[2023-05-23 19:03] LABS: Urine Bacteria NONE SEEN /hpf (None Seen); Urine Blood Negative /uL (Negative); Urine Clarity Clear (Clear); Urine Color STRAW (Yellow); Urine Protein, UAD Negative (Negative); Urine Specific Gravity 1.003 (1.001-1.035); Urine Urobilinogen Normal (Negative); Urine WBC <1 /hpf (0 - 3); Urine pH 5.5 (5.0-8.0)
[2023-05-23 20:48] VITALS: BP 143/99; PULSE 84; RESP 18; TEMP 98.1; O2SAT 96
== END 2023-05-23 20:49 | disposition home or self-care (01) ==
LOC: ER 14:56
DX: I10 Essential (primary) hypertension (principal); J45.909 Unspecified asthma, uncomplicated; F17.210 Nicotine dependence, cigarettes, uncomplicated; F15.90 Other stimulant use, unspecified, uncomplicated; Z98.890 Other specified postprocedural states
CPT/HCPCS: 70450; 81001; 93005

== ENCOUNTER 2023-05-25 23:50 | Emergency (ER) | payer MEDICAID ==
[~2023-05-25] VITALS: Ht 175.3 cm; Wt 90.9 kg
[2023-05-26] MEDS ORDERED: cloNIDine HCL 0.1 MG TAB PO ONE
[2023-05-26] MEDS ORDERED: LORazepam 0.5 MG TAB PO ONE (00:15)
[2023-05-26 00:16] LABS: Basophils # (auto) 0.1 10 ^3/uL (0-0.2); Basophils % (auto) 1.3 % (0.0-2.0); Eosinophils # (auto) 0.6 10 ^3/uL (0-0.8); Eosinophils % (auto) 6.8 % (0.0-7.0); Hematocrit 42.9 % (41.0-53.0); Hemoglobin 14.5 g/dL (13.5-17.5); Lymphocytes # (auto) 3.7 10 ^3/uL (0.4-5.4); Lymphocytes % (auto) 44.8 % (10.0-50.0); Mean Corpuscular Hemoglobin 30.4 pg (28.0-32.0); Mean Corpuscular Hgb Conc. 33.8 g/dL (32.0-36.0); Mean Corpuscular Volume 89.9 fL (80.0-100.0); Monocytes # (auto) 0.5 10 ^3/uL (0-1.3); Monocytes % (auto) 5.9 % (0.0-12.0); Neutrophils # (auto) 3.4 10 ^3/uL (1.6-8.6); Neutrophils % (auto) 41.2 % (37.0-80.0); Nucleated Red Blood Cells % 0.1 %; Red Blood Cells 4.78 10^6/uL (4.5-5.90); Red Cell Distribution Width 12.7 % (11.8-14.3); White Blood Cell 8.2 10^3/uL (4.4-10.8)
[2023-05-26 00:31] LABS: INR 1.14 (0.9-1.15); Partial Thromboplastin Time 27.7 SEC (24.5-34.5); Prothrombin Time 11.9 sec (9.3-11.8)
[2023-05-26 00:34] LABS: Alanine Aminotransferase 104 U/L (7-40); Albumin 4.9 g/dL (3.2-4.8); Alkaline Phosphatase 57 U/L (46-116); Anion Gap 10 (5-15); Aspartate Aminotransferase 71 U/L (13-40); BUN/Creatinine Ratio 14.2 (10.0-20.0); Bilirubin, Total 0.9 mg/dL (0.2-1.0); Blood Urea Nitrogen 23 mg/dL (9-23); Calcium 9.4 mg/dL (8.7-10.4); Carbon Dioxide 21 mmol/L (20-30); Chloride 106 mmol/L (98-107); Glucose 99 mg/dL (74-106); Potassium 3.8 mmol/L (3.5-5.1); Sodium 137 mmol/L (136-145)
[2023-05-26 03:10] VITALS: BP 126/80; PULSE 83; RESP 18; TEMP 98; O2SAT 95
== END 2023-05-26 03:17 | disposition home or self-care (01) ==
LOC: ER 23:50
DX: I10 Essential (primary) hypertension (principal); R07.89 Other chest pain; J45.909 Unspecified asthma, uncomplicated; F17.210 Nicotine dependence, cigarettes, uncomplicated; Z79.899 Other long term (current) drug therapy
CPT/HCPCS: 36415; 71045; 80053; 83735; 84484; 85025; 85610; 85730; 93005

== ENCOUNTER 2023-09-26 09:50 | Emergency (ER) | payer MEDICAID ==
[~2023-09-26] VITALS: Ht 175.3 cm; Wt 99.1 kg
[2023-09-26 12:30] LABS: Basophils # (auto) 0.1 10 ^3/uL (0-0.2); Basophils % (auto) 0.6 % (0.0-2.0); Eosinophils # (auto) 0.4 10 ^3/uL (0-0.8); Eosinophils % (auto) 3.7 % (0.0-7.0); Hematocrit 41.7 % (41.0-53.0); Hemoglobin 14.4 g/dL (13.5-17.5); Lymphocytes # (auto) 2.4 10 ^3/uL (0.4-5.4); Lymphocytes % (auto) 21.8 % (10.0-50.0); Mean Corpuscular Hemoglobin 30.7 pg (28.0-32.0); Mean Corpuscular Hgb Conc. 34.5 g/dL (32.0-36.0); Mean Corpuscular Volume 89.1 fL (80.0-100.0); Monocytes # (auto) 0.8 10 ^3/uL (0-1.3); Monocytes % (auto) 7.7 % (0.0-12.0); Neutrophils # (auto) 7.2 10 ^3/uL (1.6-8.6); Neutrophils % (auto) 66.2 % (37.0-80.0); Nucleated Red Blood Cells % 0.1 %; Red Blood Cells 4.67 10^6/uL (4.5-5.90); White Blood Cell 10.9 10^3/uL (4.4-10.8)
[2023-09-26] MEDS: LIDOCAINE 1% HCL (LOCAL ANESTH.) INJ 20ML MDV IJ ONE (12:43)
[2023-09-26] MEDS: cefTRIAXone SOD 1,000 MG VL IM ONE (12:43)
[2023-09-26 12:45] LABS: Chloride 108 mmol/L (98-107); Potassium 3.9 mmol/L (3.5-5.1); Sodium 138 mmol/L (136-145)
[2023-09-26 12:46] LABS: Anion Gap 9 (5-15); Calcium 9.5 mg/dL (8.5-10.1); Carbon Dioxide 21 mmol/L (20-30)
[2023-09-26 12:51] LABS: BUN/Creatinine Ratio 8.7 (10.0-20.0); Blood Urea Nitrogen 13 mg/dL (9-23); Glucose 105 mg/dL (74-106)
[2023-09-26 13:16] VITALS: BP 143/98; PULSE 72; RESP 12; TEMP 99; O2SAT 96
[2023-09-26] MEDS ORDERED: PRED20TA2 PO (13:57)
[2023-09-26] MEDS ORDERED: NAP500T PO (13:57)
== END 2023-09-26 14:03 | disposition home or self-care (01) ==
LOC: ER 09:50
DX: M10.9 Gout, unspecified (principal); J45.909 Unspecified asthma, uncomplicated; I10 Essential (primary) hypertension; F17.210 Nicotine dependence, cigarettes, uncomplicated; Z88.0 Allergy status to penicillin; Z79.899 Other long term (current) drug therapy
CPT/HCPCS: 36415; 73130; 80048; 84550; 85025; 96372; 99284; J0696; J2001

== ENCOUNTER 2024-04-13 19:29 | Emergency (ER) | payer MEDICAID ==
[~2024-04-13] VITALS: Ht 175.3 cm; Wt 101.1 kg
[~2024-04-13 19:29] MED LIST changes: +NAP500T PO; +PRED20TA2 PO
[2024-04-13] MEDS ORDERED: HYDROcodone-ACET 5/325MG TAB PO ONE (19:45)
--- NOTE | 2024-04-13 19:50 | ED.PDOC ---
Musculoskeletal HPI Comments 43-year-old male who came to ER for left elbow pain. Patient states 2 days ago, he had a ground level fall, and fell badly on his left elbow. Noted pain, swelling, and tenderness of the left elbow, with limitation of movement. Chief Complaint: Upper extremity Time Seen by MD: 19:50 Primary Care Provider: LYNNETTE Merrill Notes: Nurses Notes Allergies: Coded Allergies: Penicillins (Verified Allergy, Unknown, 04/13/24) Home Meds Active Scripts Naproxen (NAPROSYN TABLET) 500 Mg Tb, 1 TAB PO BIDPC for 7 Days, #14 TAB 0 Refills Prov:PHILLIP SYLVESTER COMPUTER LAB ASSISTANT 09/26/23 Prednisone (Prednisone) 20 Mg Tab, 40 MG PO DAILY for 7 Days, #14 TAB 0 Refills Prov:PHILLIP SYLVESTER COMPUTER LAB ASSISTANT 09/26/23 Clonidine Hydrochloride (Clonidine Hcl) 0.1 Mg Tab, 1 TAB PO Q12HP PRN, #10 TAB 0 Refills To be used if systolic pressures above 160 or diastolic pressures above 90 Prov:CHING AUSTIN 05/23/23 Valsartan (Diovan) 40 Mg Tab, 40 MG PO DAILY for 10 Days, #10 TAB Prov:BRIAN SHELDON MD 05/08/23 Buprenorphine Hcl-Naloxone Hcl (Suboxone) 1 Mis Mis, 2 STRIP SL DAILY, #60 STRIP Prov:NANDO TIERNEY DO 11/24/22 Acetaminophen (Acetaminophen) 500 Mg Tab, 500 MG PO QIDP, #30 TAB 0 Refills Prov:KAYLIN LYN 08/24/22 Sulfamethoxazole W/Trimethopri (Trimethoprim/Sulfamethoxa) 1 Tab Tab, 1 TAB PO BID for 7 Days, #14 TAB 0 Refills Prov:KAYLIN LYN 08/24/22 Information Source: Patient Mode of Arrival: Ambulatory Location: Left Extremity Location: Elbow Timing: Days Prehospital treatment: None Severity: Moderate Able to Move Extremity: No Bear Weight: Limited Pain: Moderate Hand Dominance: Right Mechanism: FOOSH Circumstances: Fall Onset of Symptoms: After Trauma Symptoms: Swelling, Pain Associated signs and symptoms: Elbow pain (Left) Past Medical History PAST MEDICAL HISTORY: Asthma, HTN Surgical History: Denies all surgeries Family History Family History: Reviewed,noncontributory to illness Social History Smoker: Cigarettes, Less Than 1 Pack/Day Alcohol: Occasionally Drugs: Denies Drug Use Lives In: Home Constitutional: denies: chills, diaphoresis, fatigue, fever, malaise, sweats, weakness, others EENTM: denies: blurred vision, double vision, ear bleeding, ear discharge, ear drainage, ear pain, ear ringing, eye pain, eye redness, hearing loss, mouth pain, mouth swelling, nasal discharge, nose bleeding, nose congestion, nose pain, photophobia, tearing, throat pain, throat swelling, voice changes, others Respiratory: denies: cough, hemoptysis, orthopnea, SOB at rest, shortness of breath, SOB with excertion, stridor, wheezing, others Cardiovascular: denies: chest pain, dizzy spells, diaphoresis, Dyspnea on exertion, edema, irregular heart beat, left arm pain, lightheadedness, palpitations, PND, syncope, others Gastrointestinal: denies: abdomen distended, abdominal pain, blood streaked bowels, constipated, diarrhea, dysphagia, difficulty swallowing, hematemesis, melena, nausea, poor appetite, poor fluid intake, rectal bleeding, rectal pain, vomiting, others Genitourinary: denies: burning, dysuria, flank pain, frequency, hematuria, incontinence, penile discharge, penile sore, pain, testicle pain, testicle swelling, urgency, others Neurological: denies: dizziness, fainting, headache, left sided numbness, left sided weakness, numbness, paresthesia, pre-existing deficit, right sided numbness, right sided weakness, seizure, speech problems, tingling, tremors, weakness, others Musculoskeletal: reports: joint pain (Left elbow), joint swelling (Left elbow); denies: back pain, gout, muscle pain, muscle stiffness, neck pain, others Integumetry: denies: bruises, change in color, change in hair/nails, dryness, laceration, lesions, lumps, rash, wounds, others Allergic/Immunocompromised: denies: Difficulty Healing, Frequent Infections, Hives, Itching, others Hematologic/Lymphatic: denies: anemia, blood clots, easy bleeding, easy bru ising, swollen glands, others Endocrine: denies: excessive hunger, excessive sweating, excessive thirst, e xcessive urination, flushing, intolerance to cold, intolerance to heat, unexplained weight gain, unexplained weight loss, others Psychiatric: denies: anxiety, bipolar disorder, depression, hopeless, panic disorder, schizophrenia, sleepless, suicidal, others Physical Exam General Appearance: No Apparent Distress, Normal HEENT: Normal ENT Inspection, Pharynx Normal, TMs Normal Neck: Full Range of Motion, Non-Tender, Normal, Normal Inspection Respiratory: Chest Non-Tender, Lungs Clear, No Accessory Muscle Use, No Re spiratory Distress, Normal Breath Sounds Cardiovascular: No Edema, No JVD, No Murmur, No Gallop, Normal Peripheral Pulses, Regular Rate/Rhythm Breast Exam: Deferred Gastrointestinal: No Organomegaly, Non Tender, No Pulsatile Mass, Normal Bowel Sounds, Soft Genitalia: Deferred Pelvic: Deferred Rectal: Deferred Extremities: No calf tenderness, Normal capillary refill, No pedal edema, Swelling (Left elbow), Tender (Left elbow) Musculoskeletal : Apperance: Normal Neurologic: Alert, railroad police II-XII nml as Tested, No Motor Deficits, Normal Affect, Normal Mood, No Sensory Deficits Cerebellar Function: Normal Reflexes: Normal Skin: Dry, Normal Color, Warm Lymphatic: No Adenopathy Was a procedure done? Was a procedure done?: No Differential Diagnosis EXT Differential Diagnosis: Fracture, Sprain, Dislocation, Strain X-Ray, Labs, Meds, VS Vital Signs Date Time Temp Pulse Resp B/P (MAP) Pulse Ox O2 Delivery O2 Flow Rate FiO2 04/13/24 20:35 97.8 77 16 153/98 (116) 95 97.8 04/13/24 20:35 Room Air* 0 21 04/13/24 19:44 98.9 80 20 158/99 (118) 96 Current Medications Medications (Trade) Dose Ordered Sig/Leti Route Start Time Stop Time Status Last Admin Acetaminophen (Tylenol Tablet) 650 mg ONCE ONCE PO 04/13/24 20:45 04/13/24 20:46 DC 04/13/24 20:37 PROCEDURE(s): LELB3 - L ELBOW 3 VIEW XRAY FINDINGS/IMPRESSION: There is no evidence of acute fracture or dislocation. The visualized joint space is well maintained. The alignment is anatomical. There is no radiopaque foreign body. Time of 1ST Reevaluation: 19:46 Reevaluation 1ST: Unchanged Patient Education/Counseling: Diagnosis, Treatment Family Education/Counseling: No Family Present Departure 1 Departure Time of Disposition: 20:47 (Patient's x-rays benign. Patient has a sprained his elbow. Discharge patient home with outpatient follow up) Impression: Primary Impression: Sprain of left elbow Qualified Codes: S53.402A - Unspecified sprain of left elbow, initial encounter Disposition: HOME / SELF CARE / HOMELESS Condition: Stable Referrals: BERTA JEFFERSON MD Additional Instructions: Your x-rays were benign today. You likely sprained your left elbow. You were referred to orthopedic surgery. Please call for an appointment next week to ensure you are healing well. For pain you can take the followinam: Ibuprofen 400mg with food Noon: Acetaminophen 1000mg 4pm: Ibuprofen 400mg with food 8pm: Acetaminophen 1000mg If your symptoms worsen or you have any other concerns then please return to the ER. Discharged With: Self Critical Care Note Critical Care Time?: No Stability Stability form required: No Heart Score Heart Score: Heart Score Response (Comments) Value History N/A 0 EKG N/A 0 Age N/A 0 Risk Factors N/A 0 Troponin N/A 0 Total 0 I personally scribed for BERNIE MELO MD ([facility]) on 04/13/24 at 19:50. Electronically submitted by Bravo Hennessy ([facility]). I personally scribed for BERNIE MELO MD ([employer]) on 04/13/24 at 20:33. Electronically submitted by Bravo Hennessy ([facility]). BERNIE MELO MD Apr 13, 2024 19:50
--- NOTE | 2024-04-13 20:26 | DVH ---
CLINICAL INDICATION: fall TECHNIQUE: 3 radiographic views of the left elbow were obtained. Comparison: XY L HAND 3V XRAY on DOS: 09/26/23 FINDINGS/IMPRESSION: There is no evidence of acute fracture or dislocation. The visualized joint space is well maintained. The alignment is anatomical. There is no radiopaque foreign body.
[2024-04-13 20:35] VITALS: BP 153/98; PULSE 77; RESP 16; TEMP 97.8; O2SAT 95
[2024-04-13] MEDS: ACETAMINOPHEN 325 MG TAB PO ONE (20:37)
== END 2024-04-13 20:58 | disposition home or self-care (01) ==
LOC: ER 19:29
DX: S53.402A Unspecified sprain of left elbow, initial encounter (principal); J45.909 Unspecified asthma, uncomplicated; I10 Essential (primary) hypertension; F17.210 Nicotine dependence, cigarettes, uncomplicated; Z79.52 Long term (current) use of systemic steroids; Z79.899 Other long term (current) drug therapy; Z88.0 Allergy status to penicillin; W01.0XXA Fall on same level from slipping, tripping and stumbling without subsequent striking against object, initial encounter; Y93.89 Activity, other specified; Y92.89 Other specified places as the place of occurrence of the external cause; Y99.8 Other external cause status
CPT/HCPCS: 29105; 73080

== ENCOUNTER 2024-04-16 19:49 | Emergency (ER) | payer MEDICAID ==
[~2024-04-16] VITALS: Ht 175.3 cm; Wt 100.4 kg
[2024-04-16] MEDS ORDERED: PRED20TA2 PO (22:48)
[2024-04-16] MEDS ORDERED: IBUP-1456 PO (22:48)
[2024-04-16] MEDS ORDERED: CLIN1CAP70 PO (22:48)
--- NOTE | 2024-04-16 22:50 | ED.PDOC ---
Musculoskeletal HPI Comments 43 year old male presents to ER with complaints of left hand pain x 1 day. Patient states he started experiencing pain/swelling/redness to left hand this morning. Notes he was seen in ER here 3 days ago for a mechanical trip and fall onto left arm but states he was not having left hand pain at that time and that his left hand symptoms started this morning. He reports 8/10 pain to left hand without radiation. Denies use of medications for current symptoms. Denies fever, body aches, chills, numbness/tingling, known insect bite or any further symptoms/complaints Chief Complaint: Upper Extremity Time Seen by MD: 20:43 Primary Care Provider: LYNNETTE Reviewed Notes: Nurses Notes, Medications, Allergies Allergies: Coded Allergies: Penicillins (Verified Allergy, Unknown, 04/13/24) Home Meds Active Scripts Ibuprofen (Ibuprofen) 800 Mg Tab, 1 TAB PO TID PRN, #30 TAB 0 Refills Prov:KAYLIN LYN 04/16/24 Prednisone (Prednisone) 20 Mg Tab, 20 MG PO BID for 5 Days, #10 TAB 0 Refills Prov:KAYLIN LYN 04/16/24 Clindamycin Hcl (Clindamycin Hcl) 300 Mg Cap, 300 MG PO QID for 7 Days, #28 CAP 0 Refills Prov:KAYLIN LYN 04/16/24 Naproxen (NAPROSYN TABLET) 500 Mg Tb, 1 TAB PO BIDPC for 7 Days, #14 TAB 0 Refills Prov:PHILLIP SYLVESTER NP 09/26/23 Prednisone (Prednisone) 20 Mg Tab, 40 MG PO DAILY for 7 Days, #14 TAB 0 Refills Prov:PHILLIP SYLVESTER NP 09/26/23 Clonidine Hydrochloride (Clonidine Hcl) 0.1 Mg Tab, 1 TAB PO Q12HP PRN, #10 TAB 0 Refills To be used if systolic pressures above 160 or diastolic pressures above 90 Prov:CHING AUSTIN 05/23/23 Valsartan (Diovan) 40 Mg Tab, 40 MG PO DAILY for 10 Days, #10 TAB Prov:BRIAN SHELDON MD 05/08/23 Buprenorphine Hcl-Naloxone Hcl (Suboxone) 1 Mis Mis, 2 STRIP SL DAILY, #60 STRIP Prov:NANDO TIERNEY DO 11/24/22 Acetaminophen (Acetaminophen) 500 Mg Tab, 500 MG PO QIDP, #30 TAB 0 Refills Prov:KAYLIN LYN 08/24/22 Sulfamethoxazole W/Trimethopri (Trimethoprim/Sulfamethoxa) 1 Tab Tab, 1 TAB PO BID for 7 Days, #14 TAB 0 Refills Prov:KAYLIN LYN 08/24/22 Information Source: Patient Mode of Arrival: Ambulatory Past Medical History PAST MEDICAL HISTORY: Asthma, Gout, HTN Surgical History: Denies all surgeries Family History Family History: Unknown Social History Smoker: Cigarettes, Less Than 1 Pack/Day Alcohol: Occasionally Drugs: Denies Drug Use Lives In: Home Constitutional: denies: chills, diaphoresis, fatigue, fever, malaise, sweats, weakness, others EENTM: denies: blurred vision, double vision, ear bleeding, ear discharge, ear drainage, ear pain, ear ringing, eye pain, eye redness, hearing loss, mouth pain, mouth swelling, nasal discharge, nose bleeding, nose congestion, nose pain, photophobia, tearing, throat pain, throat swelling, voice changes, others Respiratory: denies: cough, hemoptysis, orthopnea, SOB at rest, shortness of breath, SOB with excertion, stridor, wheezing, others Cardiovascular: denies: chest pain, dizzy spells, diaphoresis, Dyspnea on exertion, edema, irregular heart beat, left arm pain, lightheadedness, palpitations, PND, syncope, others Gastrointestinal: denies: abdomen distended, abdominal pain, blood streaked bowels, constipated, diarrhea, dysphagia, difficulty swallowing, hematemesis, melena, nausea, poor appetite, poor fluid intake, rectal bleeding, rectal pain, vomiting, others Genitourinary: denies: burning, dysuria, flank pain, frequency, hematuria, incontinence, penile discharge, penile sore, pain, testicle pain, testicle swelling, urgency, others Neurological: denies: dizziness, fainting, headache, left sided numbness, left sided weakness, numbness, paresthesia, pre-existing deficit, right sided numbness, right sided weakness, seizure, speech problems, tingling, tremors, weakness, others Musculoskeletal: reports: others (As stated in HPI) Integumetry: reports: others (As stated in HPI) Allergic/Immunocompromised: denies: Difficulty Healing, Frequent Infections, Hives, Itching, others Hematologic/Lymphatic: denies: anemia, blood clots, easy bleeding, easy bruising, swollen glands, others Endocrine: denies: excessive hunger, excessive sweating, excessive thirst, excessive urination, flushing, intolerance to cold, intolerance to heat, unexplained weight gain, unexplained weight loss, others Psychiatric: denies: anxiety, bipolar disorder, depression, hopeless, panic disorder, schizophrenia, sleepless, suicidal, others Physical Exam General Appearance: No Apparent Distress, Obese HEENT: PERRL/EOMI Neck: Full Range of Motion, Non-Tender, Normal Respiratory: Chest Non-Tender, Lungs Clear, No Accessory Muscle Use, No Respiratory Distress, Normal Breath Sounds Cardiovascular: No Murmur, No Gallop, Regular Rate/Rhythm Breast Exam: Deferred Gastrointestinal: NOT DONE Genitalia: Deferred Pelvic: Deferred Rectal: Deferred Extremities: No calf tenderness, Normal capillary refill Musculoskeletal : Extremity Location: Hand (Moderate swelling/erythema noted diffuse to dorsal surface of left hand. No red streaking/drainage/fluctuance noted. Slight limitation on flexion to all fingers of left hand noted. No TTP to left wrist noted. Pulses intact) Neurologic: Alert, No Motor Deficits, Normal Affect, Normal Mood, No Sensory Deficits Cerebellar Function: Normal Reflexes: Normal Skin: Dry, Warm Peripheral Pulses: 2+ Radial (R), 2+ Radial (L), 2+ Brachial (R), 2+ Brachial (L) Lymphatic: No Adenopathy Was a procedure done? Was a procedure done?: No Sedation Sedation?: No Differential Diagnosis EXT Differential Diagnosis: Fracture, Dislocation, Neurovascular injury X-Ray, Labs, Meds, VS Vital Signs Date Time Temp Pulse Resp B/P (MAP) Pulse Ox O2 Delivery O2 Flow Rate FiO2 04/17/24 00:15 86 16 94 Room Air 04/17/24 00:15 97.7 86 16 129/83 (98) 94 97.7 04/16/24 20:19 98.1 75 18 147/95 (112) 95 Current Medications Medications (Trade) Dose Ordered Sig/Leti Route Start Time Stop Time Status Last Admin Clindamycin Phosphate 50 ml @ 50 mls/hr ONCE ONCE IV 04/16/24 22:45 04/16/24 23:44 DC 04/17/24 01:22 Ceftriaxone Sodium 50 ml @ 100 mls/hr ONCE ONCE IV 04/16/24 22:45 04/16/24 23:14 DC 04/17/24 01:00 Methylprednisolone Sodium Succinate (Solu Medrol) 125 mg ONCE ONCE IV 04/16/24 22:45 04/16/24 22:46 DC 04/17/24 01:19 Ketorolac Tromethamine (Toradol Injection) 30 mg ONCE ONCE IV 04/16/24 22:45 04/16/24 22:46 DC 04/17/24 01:19 PATIENT: ZAY BARROS ACCT: [id number] UNIT: [id number] : 1980 LOC: ER ROOM / BED: / AGE / SEX: 43 / M ADM STATUS: REG ER SERVICE 37 ORDERING PHYSICIAN: KAYLIN LYN PROCEDURE(s): LHAN - L HAND 3V XRAY REASON: LEFT HAND PAIN ORDER NUMBER(s): [id number], ACCESSION NUMBER(s): [id number] CLINICAL INDICATION: LEFT HAND PAIN TECHNIQUE: XY L HAND 3V XRAY Comparison: XY L ELBOW 3 VIEW XRAY on DOS: 04/13/24, XY L HAND 3V XRAY on DOS: 09/26/23 FINDINGS/IMPRESSION: There is no evidence of acute fracture or dislocation. The visualized joint space is well maintained. The alignment is anatomical. There is no radiopaque foreign body. ATED BY: KIRT VILLASEÑOR DO DICTATED DATE/TIME: 04/16/242315 SIGNED BY: KIRT VILLASEÑOR DO SIGNED DATE/TIME: 04/16/242315 CC: Left hand x-ray reviewed Patient neurovascularly intact and reported improvement in symptoms prior to discharge Hep-Lock IV ordered Clindamycin 900 mg IV ordered Rocephin 1 g IV ordered Solu-Medrol 125 mg IV ordered Toradol 30 mg IV ordered Smoking cessation discussed and advised Advised on stress/no strenuous activity and elevation Advised to follow up in two days for wound check Advised to follow up with PCP in 1-2 days Patient verbalized understanding and agreeable with current plan of care Advised to return to ER immediately if symptoms worsen Images Reviewed?: Images reviewed and evaluated by me Time of 1ST Reevaluation: 22:42 Reevaluation 1ST: N/A Patient Education/Counseling: Diagnosis, Treatment, Prognosis, Need For Follow Up Family Education/Counseling: No Family Present Departure 1 Departure Time of Disposition: 23:22 Impression: Primary Impression: Cellulitis of left hand Disposition: 01 HOME / SELF CARE / HOMELESS Condition: Stable e-Prescriptions Ibuprofen (Ibuprofen) 800 Mg Tab 1 TAB PO TID PRN, #30 TAB 0 Refills Prov: KAYLIN LYN 04/16/24 Prednisone (Prednisone) 20 Mg Tab 20 MG PO BID for 5 Days, #10 TAB 0 Refills Prov: KAYLIN LYN 04/16/24 Clindamycin Hcl (Clindamycin Hcl) 300 Mg Cap 300 MG PO QID for 7 Days, #28 CAP 0 Refills Prov: KAYLIN LYN 04/16/24 Critical Care Note Critical Care Time?: No Stability Stability form required: No Heart Score Heart Score: Heart Score Response (Comments) Value History N/A 0 EKG N/A 0 Age N/A 0 Risk Factors N/A 0 Troponin N/A 0 Total 0 KAYLIN LYN Apr 16, 2024 22:50
--- NOTE | 2024-04-16 23:19 | DVH ---
CLINICAL INDICATION: LEFT HAND PAIN TECHNIQUE: XY L HAND 3V XRAY Comparison: XY L ELBOW 3 VIEW XRAY on DOS: 04/13/24, XY L HAND 3V XRAY on DOS: 09/26/23 FINDINGS/IMPRESSION: There is no evidence of acute fracture or dislocation. The visualized joint space is well maintained. The alignment is anatomical. There is no radiopaque foreign body.
[2024-04-17 00:15] VITALS: BP 129/83; PULSE 86; RESP 16; TEMP 97.7; O2SAT 94
[2024-04-17] MEDS: cefTRIAXone 1GM/50ML D5W 50 ML IV ONE (01:00)
[2024-04-17] MEDS: KETOROLAC TROMETH 30 MG/ML 1ML VIAL IV ONE (01:19)
[2024-04-17] MEDS: methylPREDNISolone SOD SUCC 125 MG/2 ML VL IV ONE (01:19)
[2024-04-17] MEDS: CLINDAMYCIN 900MG IV 50 ML IV ONE (01:22)
== END 2024-04-17 02:29 | disposition home or self-care (01) ==
LOC: ER 19:49
DX: L03.114 Cellulitis of left upper limb (principal); J45.909 Unspecified asthma, uncomplicated; F17.210 Nicotine dependence, cigarettes, uncomplicated; Z88.0 Allergy status to penicillin; Z79.899 Other long term (current) drug therapy
CPT/HCPCS: 73130; 96365; 96368; 96375; 99284; J0696; J1885; J2919; J3490; 96372

== ENCOUNTER 2024-05-21 17:36 | Emergency (ER) | payer MEDICAID ==
[~2024-05-21] VITALS: Ht 175.3 cm; Wt 98.7 kg
[~2024-05-21 17:36] MED LIST changes: +CLIN1CAP70 PO; +IBUP-1456 PO; +NAPR-957 PO
[2024-05-21 17:50] VITALS: BP 153/93; PULSE 84
[2024-05-21] MEDS ORDERED: VALS40TA2 PO (18:11)
[2024-05-21] MEDS ORDERED: COLC1CAP PO (18:11)
--- NOTE | 2024-05-21 18:12 | ED.PDOC ---
Musculoskeletal HPI Comments 43-year-old male complaining of left thumb pain and swelling and redness x3 days. Patient reports a history of gout. States he had a gout flare last week in the left thumb and bilateral knees. Patient states he tried taking naproxen with little help. Ran out of colchicine. Denies any trauma to the left thumb. Time Seen by MD: 17:50 Primary Care Provider: LYNNETTE Reviewed Notes: Nurses Notes Allergies: Coded Allergies: Penicillins (Verified Allergy, Unknown, 04/13/24) Home Meds Active Scripts Naproxen (Naproxen) 375 Mg Tab, 1 TAB PO BID PRN for 20 Days, #40 TAB Prov:JOANNA DENGP 05/04/24 Ibuprofen (Ibuprofen) 800 Mg Tab, 1 TAB PO TID PRN, #30 TAB 0 Refills Prov:KAYLIN LYN 04/16/24 Prednisone (Prednisone) 20 Mg Tab, 20 MG PO BID for 5 Days, #10 TAB 0 Refills Prov:KAYLIN LYN 04/16/24 Clindamycin Hcl (Clindamycin Hcl) 300 Mg Cap, 300 MG PO QID for 7 Days, #28 CAP 0 Refills Prov:KAYLIN LYN 04/16/24 Naproxen (NAPROSYN TABLET) 500 Mg Tb, 1 TAB PO BIDPC for 7 Days, #14 TAB 0 Refills Prov:PHILLIP SYLVESTER CAMERA PERSON 09/26/23 Prednisone (Prednisone) 20 Mg Tab, 40 MG PO DAILY for 7 Days, #14 TAB 0 Refills Prov:PHILLIP SYLVESTER CAMERA PERSON 09/26/23 Clonidine Hydrochloride (Clonidine Hcl) 0.1 Mg Tab, 1 TAB PO Q12HP PRN, #10 TAB 0 Refills To be used if systolic pressures above 160 or diastolic pressures above 90 Prov:CHING AUSTIN PAC 05/23/23 Valsartan (Diovan) 40 Mg Tab, 40 MG PO DAILY for 10 Days, #10 TAB Prov:BRIAN SHELDON MD 05/08/23 Buprenorphine Hcl-Naloxone Hcl (Suboxone) 1 Mis Mis, 2 STRIP SL DAILY, #60 STRIP Prov:NANDO TIERNEY DO 11/24/22 Acetaminophen (Acetaminophen) 500 Mg Tab, 500 MG PO QIDP, #30 TAB 0 Refills Prov:KAYLIN LYN 3/28/23 Sulfamethoxazole W/Trimethopri (Trimethoprim/Sulfamethoxa) 1 Tab Tab, 1 TAB PO BID for 7 Days, #14 TAB 0 Refills Prov:KAYLIN LYN 08/24/22 Information Source: Patient Location: Left Extremity Location: Thumb Past Medical History PAST MEDICAL HISTORY: Asthma, Gout, HTN Surgical History: Denies all surgeries Family History Family History: Unknown Social History Smoker: Cigarettes, Less Than 1 Pack/Day Alcohol: Occasionally Drugs: Denies Drug Use Lives In: Home Constitutional: denies: chills, diaphoresis, fatigue, fever, malaise, sweats, weakness, others EENTM: denies: blurred vision, double vision, ear bleeding, ear discharge, ear drainage, ear pain, ear ringing, eye pain, eye redness, hearing loss, mouth pain, mouth swelling, nasal discharge, nose bleeding, nose congestion, nose pain, photophobia, tearing, throat pain, throat swelling, voice changes, others Respiratory: denies: cough, hemoptysis, orthopnea, SOB at rest, shortness of breath, SOB with excertion, stridor, wheezing, others Cardiovascular: denies: chest pain, dizzy spells, diaphoresis, Dyspnea on exertion, edema, irregular heart beat, left arm pain, lightheadedness, palpitations, PND, syncope, others Gastrointestinal: denies: abdomen distended, abdominal pain, blood streaked bowels, constipated, diarrhea, dysphagia, difficulty swallowing, hematemesis, melena, nausea, poor appetite, poor fluid intake, rectal bleeding, rectal pain, vomiting, others Genitourinary: denies: burning, dysuria, flank pain, frequency, hematuria, incontinence, penile discharge, penile sore, pain, testicle pain, testicle swelling, urgency, others Neurological: denies: dizziness, fainting, headache, left sided numbness, left sided weakness, numbness, paresthesia, pre-existing deficit, right sided numbness, right sided weakness, seizure, speech problems, tingling, tremors, weakness, others Musculoskeletal: reports: joint pain, joint swelling; denies: back pain, gout, muscle stiffness, neck pain, others Integumetry: denies: bruises, change in color, change in hair/nails, dryness, laceration, lesions, lumps, rash, wounds, others Allergic/Immunocompromised: denies: Difficulty Healing, Frequent Infections, Hives, Itching, others Hematologic/Lymphatic: denies: anemia, blood clots, easy bleeding, easy bruising, swollen glands, others Physical Exam General Appearance: No Apparent Distress, Normal HEENT: Normal ENT Inspection, Pharynx Normal, TMs Normal Neck: Full Range of Motion, Non-Tender, Normal, Normal Inspection Respiratory: Chest Non-Tender, Lungs Clear, No Accessory Muscle Use, No Respiratory Distress, Normal Breath Sounds Cardiovascular: No Edema, No JVD, No Murmur, No Gallop, Normal Peripheral Pulses, Regular Rate/Rhythm Breast Exam: Deferred Gastrointestinal: No Organomegaly, Non Tender, No Pulsatile Mass, Normal Bowel Sounds, Soft Genitalia: Deferred Pelvic: Deferred Rectal: Deferred Extremities: No calf tenderness, Normal capillary refill, No pedal edema, Swelling (Left thumb positive swelling positive redness limited range of motion due to pain.) Musculoskeletal : Apperance: Normal Neurologic: Alert, product design engineer II-XII nml as Tested, No Motor Deficits, Normal Affect, Normal Mood, No Sensory Deficits Cerebellar Function: Normal Reflexes: Normal Skin: Dry, Normal Color, Warm Lymphatic: No Adenopathy Was a procedure done? Was a procedure done?: No Differential Diagnosis EXT Differential Diagnosis: Fracture, Sprain, Dislocation, Gout X-Ray, Labs, Meds, VS Comment Imaging: X-rays and CT scans were reviewed and interpreted by this provider, imaging shows no fractures and no pathological disease. Pending radiology review. Laboratory: Labs reviewed and interpreted by this provider. No significant abnormalities noted. Patient has prior medical visits reviewed. Med reconciliation performed Vital signs reviewed Time of 1ST Reevaluation: 18:11 Reevaluation 1ST: Improved Patient Education/Counseling: Diagnosis, Treatment, Need For Follow Up (Follow up with the PCP in the next 3-5 days. Return to the emergency department if symptoms worsen.) Family Education/Counseling: No Family Present Departure 1 Departure Time of Disposition: 18:10 Impression: Primary Impression: Gout attack Disposition: HOME / SELF CARE / HOMELESS Condition: Fair e-Prescriptions Colchicine (Colchicine) 0.6 Mg Cap 0.6 MG PO DAILY PRN, #12 CAP Prov: HAYDEE BRIGGS 05/21/24 Valsartan (Diovan) 40 Mg Tab 1 TAB PO BID, #90 TAB 1 Refill Prov: HAYDEE BRIGGS 05/21/24 Discharged With: Self Critical Care Note Critical Care Time?: No Stability Stability form required: No Heart Score Heart Score: Heart Score Response (Comments) Value History N/A 0 EKG N/A 0 Age N/A 0 Risk Factors N/A 0 Troponin N/A 0 Total 0 HAYDEE BRIGGS May 21, 2024 18:12
[2024-05-21] MEDS: KETOROLAC TROMETH 30 MG/ML 1ML VIAL IM ONE (18:14)
[2024-05-21] MEDS: methylPREDNISolone SOD SUCC 125 MG/2 ML VL IM ONE (18:14)
[2024-05-21 18:20] VITALS: RESP 17; O2SAT 98
== END 2024-05-21 19:23 | disposition home or self-care (01) ==
LOC: ER 17:39
DX: M10.9 Gout, unspecified (principal); J45.909 Unspecified asthma, uncomplicated; I10 Essential (primary) hypertension; F17.210 Nicotine dependence, cigarettes, uncomplicated; Z79.52 Long term (current) use of systemic steroids; Z79.899 Other long term (current) drug therapy; Z88.0 Allergy status to penicillin
CPT/HCPCS: 96372; 99284; J1885; J2919

== ENCOUNTER 2025-04-13 12:59 | Emergency (ER) | payer MEDICAID ==
[~2025-04-13] VITALS: Ht 175.3 cm; Wt 106.8 kg
[~2025-04-13 12:59] MED LIST changes: +COLC1CAP PO; -NAPR-957 PO
--- NOTE | 2025-04-13 13:37 | ED.PDOC ---
Musculoskeletal HPI Comments A 44 YEAR OLD MALE PRESENTS TO THE ED WITH COMPLAINT OF LEFT HAND PAIN . PATIENT HAS A HISTORY OF GOUT AND STATES OVER THE PAST 4- 5 DAYS, HE HAS BEEN HAVING GOUT FLARE UP WITH LEFT HAND PAIN REDNESS AND SWELLING. PATIENT STATES HE IS OUT OF THE HIS GOUT ALLOPURINOL AND COLCHICINE AND NEEDS A REFILL. PATIENT DENIES FEVER, CHILLS, SHORTNESS OF BREATH, CHEST PAIN, ABDOMINAL PAIN, NAUSEA, VOMITING, HEADACHE, OR OTHER COMPLAINTS. NO OTHER SYMPTOMS OR MODIFYING FACTORS AT THIS TIME. PATIENT IS ALERT, ORIENTED X 4, AND HAS STEADY GAIT. Chief Complaint: Upper Extremity Time Seen by MD: 13:37 Primary Care Provider: LYNNETTE Merrill Notes: Nurses Notes, Medications, Allergies Allergies: Coded Allergies: Penicillins (Verified Allergy, Unknown, 04/13/24) Home Meds Active Scripts Allopurinol (ZYLOPRIM TABLET) 100 Mg Tb, 1 TAB PO DAILY, #30 TAB Prov:RAFAELA VELÁSQUEZ 04/13/25 Indomethacin (Indomethacin) 50 Mg Cap, 1 CAP PO TID, #30 CAP Prov:RAFAELA VELÁSQUEZ 04/13/25 Colchicine (Colchicine) 0.6 Mg Cap, 0.6 MG PO BID, #30 CAP Prov:RAFAELA VELÁSQUEZ 04/13/25 Colchicine (Colchicine) 0.6 Mg Cap, 0.6 MG PO DAILY PRN, #12 CAP Prov:HAYDEE ENG 05/21/24 Valsartan (Diovan) 40 Mg Tab, 1 TAB PO BID, #90 TAB 1 Refill Prov:HAYDEE ENG 05/21/24 Ibuprofen (Ibuprofen) 800 Mg Tab, 1 TAB PO TID PRN, #30 TAB 0 Refills Prov:KAYLIN YLN 04/16/24 Prednisone (Prednisone) 20 Mg Tab, 20 MG PO BID for 5 Days, #10 TAB 0 Refills Prov:KAYLIN LYN 04/16/24 Clindamycin Hcl (Clindamycin Hcl) 300 Mg Cap, 300 MG PO QID for 7 Days, #28 CAP 0 Refills Prov:KAYLIN LYN 04/16/24 Naproxen (NAPROSYN TABLET) 500 Mg Tb, 1 TAB PO BIDPC for 7 Days, #14 TAB 0 Refills Prov:PHILLIP SYLVESTER NP 09/26/23 Prednisone (Prednisone) 20 Mg Tab, 40 MG PO DAILY for 7 Days, #14 TAB 0 Refills Prov:HIGINIOPHILLIP F SLIP TENDER 09/26/23 Clonidine Hydrochloride (Clonidine Hcl) 0.1 Mg Tab, 1 TAB PO Q12HP PRN, #10 TAB 0 Refills To be used if systolic pressures above 160 or diastolic pressures above 90 Prov:CHING AUSTIN 05/23/23 Valsartan (Diovan) 40 Mg Tab, 40 MG PO DAILY for 10 Days, #10 TAB Prov:BRIAN SHELDON MD 05/08/23 Buprenorphine Hcl-Naloxone Hcl (Suboxone) 1 Mis Mis, 2 STRIP SL DAILY, #60 STRIP Prov:NANDO TIERNEY DO 11/24/22 Acetaminophen (Acetaminophen) 500 Mg Tab, 500 MG PO QIDP, #30 TAB 0 Refills Prov:KAYLIN LYN 08/24/22 Sulfamethoxazole W/Trimethopri (Trimethoprim/Sulfamethoxa) 1 Tab Tab, 1 TAB PO BID for 7 Days, #14 TAB 0 Refills Prov:KAYLIN LYN 08/24/22 Information Source: Patient Mode of Arrival: Ambulatory Brought in by: SELF Location: Left Extremity Location: Hand Timing: Days Prehospital treatment: None Severity: Moderate Able to Move Extremity: Yes Bear Weight: Fully Pain: Moderate Hand Dominance: Right Mechanism: Using Circumstances: Unknown Onset of Symptoms: Spontaneous Symptoms: Swelling, Pain, Erythema DVT Risk Factors: NONE Last Tetanus: UTD History of: Gout Associated signs and symptoms: None Past Medical History PAST MEDICAL HISTORY: Asthma, Gout, HTN Surgical History: Denies all surgeries Family History Family History: Unknown Social History Smoker: Cigarettes, Less Than 1 Pack/Day Alcohol: Occasionally Drugs: Denies Drug Use Lives In: Home Constitutional: denies: chills, diaphoresis, fatigue, fever, malaise, sweats, weakness, others EENTM: denies: blurred vision, double vision, ear bleeding, ear discharge, ear drainage, ear pain, ear ringing, eye pain, eye redness, hearing loss, mouth pain, mouth swelling, nasal discharge, nose bleeding, nose congestion, nose pain, photophobia, tearing, throat pain, throat swelling, voice changes, others Respiratory: denies: cough, hemoptysis, orthopnea, SOB at rest, shortness of breath, SOB with excertion, stridor, wheezing, others Cardiovascular: denies: chest pain, dizzy spells, diaphoresis, Dyspnea on exertion, edema, irregular heart beat, left arm pain, lightheadedness, palpitations, PND, syncope, others Gastrointestinal: denies: abdomen distended, abdominal pain, blood streaked bowels, constipated, diarrhea, dysphagia, difficulty swallowing, hematemesis, melena, nausea, poor appetite, poor fluid intake, rectal bleeding, rectal pain, vomiting, others Genitourinary: denies: burning, dysuria, flank pain, frequency, hematuria, incontinence, penile discharge, penile sore, pain, testicle pain, testicle swelling, urgency, others Neurological: denies: dizziness, fainting, headache, left sided numbness, left sided weakness, numbness, paresthesia, pre-existing deficit, right sided numbness, right sided weakness, seizure, speech problems, tingling, tremors, weakness, others Musculoskeletal: reports: joint pain, joint swelling (LEFT HAND); denies: back pain, gout, muscle pain, muscle stiffness, neck pain, others Integumetry: denies: bruises, change in color, change in hair/nails, dryness, laceration, lesions, lumps, rash, wounds, others Allergic/Immunocompromised: denies: Difficulty Healing, Frequent Infections, Hives, Itching, others Hematologic/Lymphatic: denies: anemia, blood clots, easy bleeding, easy bruising, swollen glands, others Endocrine: denies: excessive hunger, excessive sweating, excessive thirst, excessive urination, flushing, intolerance to cold, intolerance to heat, un explained weight gain, unexplained weight loss, others Psychiatric: denies: anxiety, bipolar disorder, depression, hopeless, panic disorder, schizophrenia, sleepless, suicidal, others All Other Systems: Reviewed and Negative Physical Exam General Appearance: No Apparent Distress, Obese HEENT: Normal ENT Inspection, PERRL/EOMI, Pharynx Normal, TMs Normal Neck: Full Range of Motion, Non-Tender, Normal, Normal Inspection Respiratory: Chest Non-Tender, Lungs Clear, No Accessory Muscle Use, No Re spiratory Distress, Normal Breath Sounds Cardiovascular: No Edema, No JVD, No Murmur, No Gallop, Normal Peripheral Pulses, Regular Rate/Rhythm Breast Exam: Deferred Gastrointestinal: No Organomegaly, Non Tender, No Pulsatile Mass, Normal Bowel Sounds, Soft Genitalia: Deferred Pelvic: Deferred Rectal: Deferred Extremities: Decreased range of motion, No calf tenderness, Normal capillary refill, No pedal edema, Swelling (REDNESS AND HEAT ON LEFT DORSAL HAND, NO BONY TENDERNESS AND DEFORMITY. ), Tender (LOCALIZED REDNESS, SWELLING AND HEAT ON LEFT DORSAL HAND, +GOUT. ) Musculoskeletal : Apperance: Normal Neurologic: Alert, scarfing machine operator II-XII nml as Tested, No Motor Deficits, Normal Affect, Normal Mood, No Sensory Deficits Cerebellar Function: Normal Reflexes: Normal Skin: Dry, Normal Color, Warm, Other (REDNESS, SWELLING AND HEAT ON LEFT DORSAL HAND, +GOUT. ) Peripheral Pulses: 2+ carotid (R), 2+ carotid (L), 2+ Radial (R), 2+ Radial (L) Lymphatic: No Adenopathy Was a procedure done? Was a procedure done?: No Differential Diagnosis EXT Differential Diagnosis: Sprain, Gout, DJD, Contusion, Strain X-Ray, Labs, Meds, VS Vital Signs Date Time Temp Pulse Resp B/P (MAP) Pulse Ox O2 Delivery O2 Flow Rate FiO2 04/13/25 13:01 97.9 89 18 162/98 100 97.9 X-Ray, Labs, Meds, VS Comment COURSE: EXTERNAL MEDICAL RECORDS REVIEWED: [NONE] INDEPENDENT HISTORIANS: [NONE] SOCIAL DETERMINANTS OF HEALTH: [NONE] LABS ORDERED: NONE REVIEWED AND INTERPRETED RESULTS: NONE IMAGING ORDERED: NONE TREATMENTS ORDERED: SOLU-MEDROL 125 IM INJECTION ONCE, TORADOL 60 MG IM INJECTION ONCE PROCEDURES PERFORMED: NONE CRITICAL CARE TIME: NONE I HAVE DISCUSSED THE PATIENT WITH THE ATTENDING PHYSICIAN DR. MELO AND HE AGR EES WITH THE PATIENT'S PLAN OF CARE AND DISPOSITION. BASED ON HISTORY OF PRESENT ILLNESS, AND PHYSICAL EXAM, PATIENT WILL BE DI SCHARGED HOME. DISCUSSED PLAN FOR DISCHARGE HOME WITH RX [INDOCIN AND COLCHICINE]. MEDICATION WARNINGS GIVEN. SHARED DECISION MAKING: DISCUSSED WITH PATIENT THAT THEIR WORKUP WAS NORMAL. PATIENT INSTRUCTED TO FOLLOW UP WITH PRIMARY CARE PROVIDER IN 1-2 DAYS FOR RE- EVALUATION OF SYMPTOMS. PATIENT VERBALIZES UNDERSTANDING TO RETURN TO ED FOR NEW OR WORSENING SYMPTOMS OR IF FOLLOW UP WITH PCP CANNOT BE OBTAINED. PATIENT FEELS COMFORTABLE GOING HOME AT THIS TIME. ALL QUESTIONS ADDRESSED AT TIME OF DISCHARGE. Time of 1ST Reevaluation: 14:20 Reevaluation 1ST: Improved Patient Education/Counseling: Diagnosis, Treatment, Need For Follow Up Family Education/Counseling: Diagnosis, Treatment, No Family Present Medical Screening: No EMC Exist At This Time Departure 1 Departure Time of Disposition: 14:20 Impression: Primary Impression: Gout attack Qualified Codes: M10.9 - Gout, unspecified Additional Impression: History of gout Disposition: HOME / SELF CARE / HOMELESS Condition: Stable Additional Instructions: INSTRUCTIONS: FOLLOW-UP WITH PCP IN 1 TO 2 DAYS. TAKE MEDICATIONS PRESCRIBED. RETURN TO ED FOR ANY NEW OR WORSENING SYMPTOMS. e-Prescriptions Allopurinol (ZYLOPRIM TABLET) 100 Mg Tb 1 TAB PO DAILY, #30 TAB Prov: RAFAELA VELÁSQUEZ 04/13/25 Indomethacin (Indomethacin) 50 Mg Cap 1 CAP PO TID, #30 CAP Prov: RAFAELA VELÁSQUEZ 04/13/25 Colchicine (Colchicine) 0.6 Mg Cap 0.6 MG PO BID, #30 CAP Prov: RAFAELA VELÁSQUEZ 04/13/25 Discharged With: Self Critical Care Note Critical Care Time?: No Stability Stability form required: No Heart Score Heart Score: Heart Score Response (Comments) Value History N/A 0 EKG N/A 0 Age N/A 0 Risk Factors N/A 0 Troponin N/A 0 Total 0 I personally scribed for RAFAELA VELÁSQUEZ ([email or web address]) on 04/13/25 at 13:37. Electronically submitted by Nenita Wilson ([email or web address]). I personally scribed for RAFAELA VELÁSQUEZ ([email or web address]) on 04/13/25 at 13:43. Electronically submitted by Nenita Wilson ([email or web address]). RAFAELA VELÁSQUEZ Apr 13, 2025 13:37
[2025-04-13] MEDS ORDERED: INDO50CA82 PO (13:53)
[2025-04-13] MEDS ORDERED: COLC1CAP PO (13:53)
[2025-04-13] MEDS ORDERED: ALL100T PO (13:53)
[2025-04-13] MEDS: methylPREDNISolone SOD SUCC 125 MG/2 ML VL IM ONE (14:04)
[2025-04-13] MEDS: KETOROLAC TROMETH 60MG/2ML VIAL IM ONE (14:04)
[2025-04-13 14:16] VITALS: BP 124/82; PULSE 77; RESP 18; TEMP 98.2; O2SAT 96
== END 2025-04-13 14:18 | disposition home or self-care (01) ==
LOC: ER 12:59
DX: M10.9 Gout, unspecified (principal); F17.210 Nicotine dependence, cigarettes, uncomplicated; F10.90 Alcohol use, unspecified, uncomplicated; J45.909 Unspecified asthma, uncomplicated; I10 Essential (primary) hypertension; Z79.899 Other long term (current) drug therapy; Z88.0 Allergy status to penicillin; Z79.52 Long term (current) use of systemic steroids
CPT/HCPCS: 96372; 99284; J1885; J2919

== ENCOUNTER 2025-05-22 09:23 | Emergency (ER) | payer MEDICAID ==
[~2025-05-22] VITALS: Ht 175.3 cm; Wt 107.6 kg
[~2025-05-22 09:23] MED LIST changes: +ALL100T PO; +INDO50CA82 PO
[2025-05-22 09:51] VITALS: BP 138/87; PULSE 101; RESP 18; TEMP 97.6; O2SAT 96
--- NOTE | 2025-05-22 09:56 | ED.PDOC ---
Musculoskeletal HPI Comments A 44 YEAR OLD MALE PRESENTS TO THE ED WITH COMPLAINT OF ANKLE PAIN. PATIENT REPORTS THAT HE STARTED TO EXPERIENCE SUDDEN LEFT ANKLE SWELLING AND PAIN SINCE THIS MORNING. PATIENT RELAYS THAT HE HAS HISTORY OF GOUT AND TOOK COLCHICINE TODAY, BUT HAS NO MORE ALLOPURINOL AT HOME. PATIENT ADMITS TO RECENT ETOH INGESTION 2 DAYS AGO. PATIENT DENIES FEVER, CHILLS, SHORTNESS OF BREATH, CHEST PAIN, ABDOMINAL PAIN, NAUSEA, VOMITING, HEADACHE, OR OTHER COMPLAINTS. NO OTHER SYMPTOMS OR MODIFYING FACTORS AT THIS TIME. PATIENT IS ALERT, ORIENTED X 4, AND HAS STEADY GAIT. Chief Complaint: Lower Extremity Time Seen by MD: 09:42 Primary Care Provider: LYNNETTE Merrill Notes: Nurses Notes, Medications, Allergies Allergies: Coded Allergies: Penicillins (Verified Allergy, Unknown, 04/13/24) Home Meds Active Scripts Colchicine (Colchicine) 0.6 Mg Cap, 0.6 MG PO BID, #30 CAP Prov:RAFAELA VELÁSQUEZ 05/22/25 Indomethacin (Indomethacin) 50 Mg Cap, 1 CAP PO TID, #30 CAP Prov:RAFAELA VELÁSQUEZ 05/22/25 Allopurinol (ZYLOPRIM TABLET) 100 Mg Tb, 1 TAB PO DAILY, #30 TAB Prov:RAFAELA VELÁSQUEZ 04/13/25 Indomethacin (Indomethacin) 50 Mg Cap, 1 CAP PO TID, #30 CAP Prov:RAFAELA VELÁSQUEZ 04/13/25 Colchicine (Colchicine) 0.6 Mg Cap, 0.6 MG PO BID, #30 CAP Prov:RAFAELA VELÁSQUEZ 04/13/25 Colchicine (Colchicine) 0.6 Mg Cap, 0.6 MG PO DAILY PRN, #12 CAP Prov:HAYDEE ENG 05/21/24 Valsartan (Diovan) 40 Mg Tab, 1 TAB PO BID, #90 TAB 1 Refill Prov:HAYDEE ENG 05/21/24 Ibuprofen (Ibuprofen) 800 Mg Tab, 1 TAB PO TID PRN, #30 TAB 0 Refills Prov:KAYLIN LYN 04/16/24 Prednisone (Prednisone) 20 Mg Tab, 20 MG PO BID for 5 Days, #10 TAB 0 Refills Prov:KAYLIN LYN 04/16/24 Clindamycin Hcl (Clindamycin Hcl) 300 Mg Cap, 300 MG PO QID for 7 Days, #28 CAP 0 Refills Prov:KAYLIN LYN 04/16/24 Naproxen (NAPROSYN TABLET) 500 Mg Tb, 1 TAB PO BIDPC for 7 Days, #14 TAB 0 Refills Prov:PHILLIP SYLVESTER STENOCAPTIONER 09/26/23 Prednisone (Prednisone) 20 Mg Tab, 40 MG PO DAILY for 7 Days, #14 TAB 0 Refills Prov:PHILLIP SYLVESTER STENOCAPTIONER 09/26/23 Clonidine Hydrochloride (Clonidine Hcl) 0.1 Mg Tab, 1 TAB PO Q12HP PRN, #10 TAB 0 Refills To be used if systolic pressures above 160 or diastolic pressures above 90 Prov:CHING AUSTIN PAC 05/23/23 Valsartan (Diovan) 40 Mg Tab, 40 MG PO DAILY for 10 Days, #10 TAB Prov:BRIAN SHELDON MD 05/08/23 Buprenorphine Hcl-Naloxone Hcl (Suboxone) 1 Mis Mis, 2 STRIP SL DAILY, #60 STRIP Prov:NANDO TIERNEY DO 11/24/22 Acetaminophen (Acetaminophen) 500 Mg Tab, 500 MG PO QIDP, #30 TAB 0 Refills Prov:KAYLIN LYN 08/24/22 Sulfamethoxazole W/Trimethopri (Trimethoprim/Sulfamethoxa) 1 Tab Tab, 1 TAB PO BID for 7 Days, #14 TAB 0 Refills Prov:KAYLIN LYN 08/24/22 Information Source: Patient Mode of Arrival: Ambulatory Location: Left Extremity Location: Foot Timing: Days Prehospital treatment: None Severity: Moderate Able to Move Extremity: Yes Bear Weight: Limited Pain: Moderate Mechanism: Spontaneous Circumstances: Spontaneous Onset of Symptoms: Spontaneous Symptoms: Swelling, Erythema DVT Risk Factors: NONE History of: Gout Associated signs and symptoms: Ankle pain Past Medical History PAST MEDICAL HISTORY: Asthma, Gout, HTN Surgical History: Denies all surgeries Family History Family History: Reviewed,noncontributory to illness, Unknown Social History Smoker: Cigarettes, Less Than 1 Pack/Day Alcohol: Occasionally Drugs: Denies Drug Use Lives In: Home Constitutional: denies: chills, diaphoresis, fatigue, fever, malaise, sweats, weakness, others EENTM: denies: blurred vision, double vision, ear bleeding, ear discharge, ear drainage, ear pain, ear ringing, eye pain, eye redness, hearing loss, mouth pain, mouth swelling, nasal discharge, nose bleeding, nose congestion, nose pain, photophobia, tearing, throat pain, throat swelling, voice changes, others Respiratory: denies: cough, hemoptysis, orthopnea, SOB at rest, shortness of breath, SOB with excertion, stridor, wheezing, others Cardiovascular: denies: chest pain, dizzy spells, diaphoresis, Dyspnea on exertion, edema, irregular heart beat, left arm pain, lightheadedness, palpitations, PND, syncope, others Gastrointestinal: denies: abdomen distended, abdominal pain, blood streaked bowels, constipated, diarrhea, dysphagia, difficulty swallowing, hematemesis, melena, nausea, poor appetite, poor fluid intake, rectal bleeding, rectal pain, vomiting, others Genitourinary: denies: burning, dysuria, flank pain, frequency, hematuria, incontinence, penile discharge, penile sore, pain, testicle pain, testicle sw elling, urgency, others Neurological: denies: dizziness, fainting, headache, left sided numbness, left sided weakness, numbness, paresthesia, pre-existing deficit, right sided numbness, right sided weakness, seizure, speech problems, tingling, tremors, weakness, others Musculoskeletal: reports: joint pain, joint swelling, others (LEFT ANKLE PAIN AND SWELLING); denies: back pain, gout, muscle pain, muscle stiffness, neck pain Integumetry: denies: bruises, change in color, change in hair/nails, dryness, laceration, lesions, lumps, rash, wounds, others Allergic/Immunocompromised: denies: Difficulty Healing, Frequent Infections, Hives, Itching, others Hematologic/Lymphatic: denies: anemia, blood clots, easy bleeding, easy bruising, swollen glands, others Endocrine: denies: excessive hunger, excessive sweating, excessive thirst, excessive urination, flushing, intolerance to cold, intolerance to heat, unexplained weight gain, unexplained weight loss, others Psychiatric: denies: anxiety, bipolar disorder, depression, hopeless, panic disorder, schizophrenia, sleepless, suicidal, others All Other Systems: Reviewed and Negative Physical Exam General Appearance: No Apparent Distress, Normal HEENT: Normal ENT Inspection, PERRL/EOMI, Pharynx Normal, TMs Normal Neck: Full Range of Motion, Non-Tender, Normal, Normal Inspection Respiratory: Chest Non-Tender, Lungs Clear, No Accessory Muscle Use, No Respiratory Distress, Normal Breath Sounds Cardiovascular: No Edema, No JVD, No Murmur, No Gallop, Normal Peripheral Pulses, Regular Rate/Rhythm Breast Exam: Deferred Gastrointestinal: No Organomegaly, Non Tender, No Pulsatile Mass, Normal Bowel Sounds, Soft Genitalia: Deferred Pelvic: Deferred Rectal: Deferred Extremities: Decreased range of motion, No calf tenderness, Normal capillary refill, No pedal edema, Swelling (TENDERNESS, REDNESS AND MILD SWELLING ON LEFT ANKLE, +GOUT, NO BONY TENDERNESS AND DEFORMITY. ), Tender (LOCALIZED REDNESS, SWELLING AND HEAT ON LEFT ANKLE, NO OPEN WOUND SEEN. ) Musculoskeletal : Apperance: Normal Neurologic: Alert, dosier operator II-XII nml as Tested, No Motor Deficits, Normal Affect, Normal Mood, No Sensory Deficits Cerebellar Function: Normal Reflexes: Normal Skin: Dry, Normal Color, Warm Peripheral Pulses: 2+ carotid (R), 2+ carotid (L), 2+ dorsalis pedis (R), 2+ dorsalis pedis (L) Lymphatic: No Adenopathy Was a procedure done? Was a procedure done?: No Differential Diagnosis EXT Differential Diagnosis: Gout, DJD, Arthritis, Bursitis X-Ray, Labs, Meds, VS Vital Signs Date Time Temp Pulse Resp B/P (MAP) Pulse Ox O2 Delivery O2 Flow Rate FiO2 05/22/25 09:51 97.6 101 18 138/87 (104) 96 97.6 05/22/25 09:51 101 05/22/25 09:28 97.8 109 18 135/99 95 97.8 X-Ray, Labs, Meds, VS Comment EXTERNAL MEDICAL RECORDS REVIEWED: [NONE] INDEPENDENT HISTORIANS: [NONE] SOCIAL DETERMINANTS OF HEALTH: [NONE] LABS ORDERED: NONE REVIEWED AND INTERPRETED RESULTS: NONE IMAGING ORDERED: NONE TREATMENTS ORDERED: TORADOL 60MG IM, SOLU-MEDROL 125MG IM PROCEDURES PERFORMED: NONE CRITICAL CARE TIME: NONE I HAVE DISCUSSED THE PATIENT WITH THE ATTENDING PHYSICIAN DR. BARAHONA AND HE AGREES WITH THE PATIENT'S PLAN OF CARE AND DISPOSITION. BASED ON HISTORY OF PRESENT ILLNESS, AND PHYSICAL EXAM, PATIENT WILL BE DISCHARGED HOME. DISCUSSED PLAN FOR DISCHARGE HOME WITH RX [COLCHICINE AND INDOCIN]. MEDICATION WARNINGS GIVEN. SHARED DECISION MAKING: DISCUSSED WITH PATIENT THAT THEIR WORKUP WAS NORMAL. PATIENT INSTRUCTED TO FOLLOW UP WITH PRIMARY CARE PROVIDER IN 1-2 DAYS FOR RE-EVALUATION OF SYMPTOMS. PATIENT VERBALIZES UNDERSTANDING TO RETURN TO ED FOR NEW OR WORSENING SYMPTOMS OR IF FOLLOW UP WITH PCP CANNOT BE OBTAINED. PATIENT FEELS COMFORTABLE GOING HOME AT THIS TIME. ALL QUESTIONS ADDRESSED AT TIME OF DISCHARGE. Time of 1ST Reevaluation: 10:15 Reevaluation 1ST: Improved Patient Education/Counseling: Diagnosis, Treatment, Need For Follow Up Family Education/Counseling: Diagnosis, Treatment, No Family Present Medical Screening: No EMC Exist At This Time Departure 1 Departure Time of Disposition: 10:20 Impression: Primary Impression: Gout flare Qualified Codes: M10.9 - Gout, unspecified Additional Impression: Acute gout of left ankle Qualified Codes: M10.9 - Gout, unspecified Disposition: HOME / SELF CARE / HOMELESS Condition: Stable Additional Instructions: FOLLOW-UP WITH PCP IN 1 TO 2 DAYS. TAKE MEDICATIONS PRESCRIBED. RETURN TO ED FOR ANY NEW OR WORSENING SYMPTOMS. e-Prescriptions Colchicine (Colchicine) 0.6 Mg Cap 0.6 MG PO BID, #30 CAP Prov: RAFAELA VELÁSQUEZ 05/22/25 Indomethacin (Indomethacin) 50 Mg Cap 1 CAP PO TID, #30 CAP Prov: RAFAELA VELÁSQUEZ 05/22/25 Discharged With: Self Critical Care Note Critical Care Time?: No Stability Stability form required: No Heart Score Heart Score: Heart Score Response (Comments) Value History N/A 0 EKG N/A 0 Age N/A 0 Risk Factors N/A 0 Troponin N/A 0 Total 0 I personally scribed for RAFAELA VELÁSQUEZ ([email or web address]) on 05/22/25 at 09:56. Electronically submitted by Juliano Negrete ([email or web address]). RAFAELA VELÁSQUEZ May 22, 2025 09:56
[2025-05-22] MEDS: KETOROLAC TROMETH 60MG/2ML VIAL IM ONE (10:06)
[2025-05-22] MEDS: methylPREDNISolone SOD SUCC 125 MG/2 ML VL IM ONE (10:07)
== END 2025-05-22 10:18 | disposition home or self-care (01) ==
LOC: ER 09:23
DX: M10.9 Gout, unspecified (principal); F10.90 Alcohol use, unspecified, uncomplicated; F17.210 Nicotine dependence, cigarettes, uncomplicated; J45.909 Unspecified asthma, uncomplicated; I10 Essential (primary) hypertension; Z79.899 Other long term (current) drug therapy; Z79.52 Long term (current) use of systemic steroids; Z88.0 Allergy status to penicillin
CPT/HCPCS: 96372; 99284; J1885; J2919